=== PATIENT | female | born 1960 | race Caucasian/White ===

== ENCOUNTER 2018-06-05 13:02 | Outpatient (REF) | payer MEDICAID, SELFPAY ==
--- NOTE | 2018-06-05 12:00 | PAPFT_PTH ---
PATIENT: Kathi Rodas LOC: [facility] U#:[id number] AGE/SX: 58/F ROOM: RE06/05/[address]: Bobbi Zeng APRN : 1960 BED: DIS: 06/05/2018 SPEC #: [id number] RECD: 06/06/18 13:05 STATUS: STEVEN RERoderick #: [id number] KERI: 06/05/18 12:[address]: Bobbi Zeng DEPT: [facility] Cytology RECD BY: So Bradley Tissues: 1 - CX/ENDOCX FOR PAP SMEARS Procedures: PAP THIN PREP/UVM Screening HPV DNA PROBE Comments: [id number]
== END 2018-06-05 13:22 ==
LOC: LBN 13:02
DX: Z12.4 Encounter for screening for malignant neoplasm of cervix (principal); Z11.51 Encounter for screening for human papillomavirus (HPV)
CPT/HCPCS: 88142; 87624

== ENCOUNTER 2018-06-13 01:39 | Outpatient (CLI) | payer MEDICAID, SELFPAY ==
--- NOTE | 2018-06-13 14:00 | DI.US_ITS ---
SYMPTOM/DIAGNOSIS: LIGHTHEADEDNESS, HYPERTENSION, HEALTH CARE MAINTENANCE, DIZZINESS, R42,I10,Z00.00 CAROTID ULTRASOUND: A mild amount of calcific plaque is seen in the left proximal external carotid artery. There is mild intimal thickening in the distal common carotid arteries. No significant internal carotid artery stenosis is visualized. The velocity measurements are in the normal range. IMPRESSION: Minimal plaque. No significant internal carotid artery stenosis.
== END 2018-06-13 01:59 ==
DX: R42 Dizziness and giddiness (principal); I65.22 Occlusion and stenosis of left carotid artery; I10 Essential (primary) hypertension; F32.9 Major depressive disorder, single episode, unspecified
CPT/HCPCS: 93880

== ENCOUNTER 2018-06-28 00:34 | Outpatient (CLI) | payer MEDICAID, SELFPAY ==
--- NOTE | 2018-06-28 15:30 | DI.MAMMO_ITS ---
SYMPTOMS/DIAGNOSIS: SCREENING, Z12.31, HEALTH CARE MAINTENANCE, Z00.00 MAMMOGRAMS: Mammograms were interpreted according to the usual protocol including computer analysis with CAD system, tomosynthesis and C view imaging. The breasts are of moderate density with fairly symmetrical distribution of fibroglandular tissue. No dominant mass or clumped microcalcification is identified in either breast. Current examination is compared with previous examinations including May 2016 and there is increased prominence of an area of nodularity projected in the central portion of the left breast on MLO view. Additional mammographic views of this area are requested to include an MLO spot compression view of the left breast. No other significant change seen. CONCLUSION: Additional mammographic views of the left breast requested as described above. Breast ultrasound may be indicated as well depending on the results of the additional mammographic views. Category 0, breast density category B. MQSA ASSESSMENT OF FINDINGS: Incomplete: Needs additional imaging evaluation. Category 0. Patient will receive a letter notifying them of these results. BI-RADS category B. There are scattered areas of fibroglandular density.
== END 2018-06-28 00:54 ==
DX: Z12.31 Encounter for screening mammogram for malignant neoplasm of breast (principal); Z00.00 Encounter for general adult medical examination without abnormal findings; R92.8 Other abnormal and inconclusive findings on diagnostic imaging of breast
CPT/HCPCS: 77063; 77067

== ENCOUNTER 2018-07-06 00:39 | Outpatient (CLI) | payer MEDICAID, SELFPAY ==
--- NOTE | 2018-07-06 14:30 | DI.COMBO_ITS ---
SYMPTOMS/DIAGNOSIS: F/U ABNORMAL MAMMO, INCREASED PROMINENCE IN AREA OF NODULARITY ADDITIONAL MAMMOGRAPHIC VIEWS, LEFT BREAST, AND LEFT BREAST ULTRASOUND: Additional mammographic views of the left breast and left breast ultrasound are interpreted in conjunction. These examinations were obtained to evaluate a questionable area of asymmetric density or nodularity seen on recent mammogram. Additional mammographic views fail to show a discrete mass. Breast ultrasound shows no evidence of a mass or cyst. CONCLUSION: No specific evidence of malignancy at this time. Follow-up unilateral left breast mammogram recommended in six months. Category 3, breast density category B. MQSA ASSESSMENT OF FINDINGS: Probably benign. Six month follow-up recommended. Category 3. Patient will receive a letter notifying them of these results. BI-RADS category B. There are scattered areas of fibroglandular density.
== END 2018-07-06 00:59 ==
DX: Z12.31 Encounter for screening mammogram for malignant neoplasm of breast (principal); R92.8 Other abnormal and inconclusive findings on diagnostic imaging of breast; N64.59 Other signs and symptoms in breast
CPT/HCPCS: 76642; 77063; 77067

== ENCOUNTER 2018-12-11 15:31 | Emergency (ER) | payer MEDICAID, SELFPAY ==
[2018-12-11 15:34] VITALS: BP 132/106; PULSE 108; RESP 20; O2SAT 97
--- NOTE | 2018-12-11 15:59 | W.ED.GENAD ---
Discharge Plan Disposition Patient Disposition: HOME Condition: Good Discharge Details Chief Complaint: Orthopedic Clinical Impression: Bunion of left foot Primary Care Provider: Bobbi Zeng ED Provider: Gil Andrade Home Meds and New Rx's Prescriptions: No Action loratadine [Claritin] 10 mg tablet 10 mg PO DAILY RF: 0 lorazepam 1 mg tablet 0.5 - 1 mg PO BID PRN (Reason: anxiety) Qty: 10 RF: 0 ibuprofen 800 mg tablet 800 mg PO TID Qty: 60 RF: 1 hydrochlorothiazide 12.5 mg tablet 12.5 mg PO DAILY Qty: 90 RF: 3 (DME) Space Chamber Plus spacer 1 ea Miscellaneous ONCE Qty: 1 RF: 0 paroxetine HCl 20 mg tablet 20 mg PO DAILY Qty: 90 RF: 3 albuterol sulfate 90 mcg/actuation HFA aerosol inhaler 2 puff IH Q6H PRN (Reason: bronchospasm) Qty: 8.5 RF: 2 fluticasone propion-salmeterol 230-21 mcg/actuation HFA aerosol inhaler 2 puff IH BID Qty: 8 RF: 2 montelukast [Singulair] 10 mg tablet 10 mg PO QHS Qty: 30 RF: 12 Discharge Instructions Instructions: Swollen Joint (ED) Additional Instructions: Please use the postop boot for the next week, you can take a maximum dose of 1000 mg of Tylenol every 6 hours and 600 mg of ibuprofen every 6 hours. Please use the Lidoderm patch as directed. Place one portion of the patch on for 12 hours, and then leave it off for [address] can then place a new quarter of the patch on and repeat this process. If you have no improvement of your symptoms it would be advised to get an x-ray of your foot for closer evaluation. If you notice any worsening of your symptoms, or any new symptoms such as vomiting, diarrhea, fever, chills, shortness of breath, chest pain, numbness, weakness, or fainting , please return immediately to the emergency department for reevaluation. Please follow up with your primary care provider as soon as possible for reassessment and reevaluation. As always, it was a pleasure participating in your medical care today. Referrals: Bobbi Zeng, AXEL [Primary Care Provider] - Medical Decision Making This is a 58-year-old female who presents today for evaluation of pain in her left foot medial bunion. She hit it with a piece of wood 3 weeks ago, pain was mild at that time and resolved on its own, however in the last 24 hours she stubbed her great toe causing significant if not severe pain at the time. Pain is made worse with movement and palpation appears to be located at the metatarsal phalangeal joint by the bunion. No significant warmth. Minimal swelling. Signs and symptoms are concerning for mild fracture, gout, or sprain. Patient has no family history of gout. We will hold off on blood testing. I did discuss getting an x-ray of the foot, unfortunately there is a significant wait for getting x-rays at this time after discussion of risks and benefits the patient has requested to hold off on x-ray and stick with current management plan. 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 The patient was given a postop shoe, padding over the medial bunion, and a small quarter of a Lidoderm patch placed on it. She actually has complete resolution of her pain with this and is able to walk without any significant pain or difficulty. She does not want crutches at this time. Will recommend NSAIDs at home, continue Lidoderm patch use and postop boot for the next 1 to 2 weeks. If she has no improvement with this I have encouraged her to come back again for x-rays. We discussed red flags for which to return. I have extensively reviewed the treatment plan and discharge instructions with the patient. I have addressed all patient concerns at this time. The patient was made aware of what symptoms to monitor for that would warrant a return to the emergency department. Discussed the plan with the patient, they demonstrate verbal understanding and agreement with our assessment and plan at this time. HPI General Date/Time Provider Initiated Documentation: 12/11/18 15:44. HPI Narrative: This is a 58-year-old female with a past medical history of COPD, anxiety, depression, who presents today for evaluation of left foot bunion pain. Patient states that she has known bunions, 3 weeks ago she dropped a piece of wood on her left great toe bunion, discussed significant pain at that time, but gradually resolved on its own. Unfortunately his last night she was walking and stubbed her left great toe causing significant pain to again recurrent in the same area. Currently pain is made worse with palpation and movement. She has taken a dose of ibuprofen but this does not resolve the symptoms. She denies any personal or family history of gout. She denies any complaints of fever or chills. Pain seems to be mainly localized in the bunion itself. No other modifying factors. Related Data Home Medications Medication Instructions Recorded Confirmed hydrochlorothiazide 12.5 mg tablet 12.5 mg PO DAILY #90 tab 12/12/17 12/11/18 inhalational spacing device #1 each 12/12/17 12/11/18 paroxetine HCl 20 mg tablet 20 mg PO DAILY #90 tab 12/12/17 12/11/18 loratadine 10 mg tablet 10 mg PO DAILY 06/05/18 12/11/18 albuterol sulfate 90 mcg/actuation 2 puff IH Q6H PRN #8.5 gm 10/08/18 12/11/18 aerosol inhaler fluticasone propionate-salmeterol 2 puff IH BID #8 gm 10/08/18 12/11/18 230 mcg-21 mcg/actuation HFA inhaler ibuprofen 800 mg tablet 800 mg PO TID #60 tab 11/14/18 12/11/18 lorazepam 1 mg tablet 0.5 - 1 mg PO BID PRN #10 tab 11/14/18 12/11/18 montelukast 10 mg tablet 10 mg PO QHS #30 tab 11/26/18 12/11/18 Previous Rx's Medication Instructions Recorded hydrochlorothiazide 12.5 mg tablet 12.5 mg PO DAILY #90 tab 12/12/17 inhalational spacing device #1 each 12/12/17 paroxetine HCl 20 mg tablet 20 mg PO DAILY #90 tab 12/12/17 albuterol sulfate 90 mcg/actuation 2 puff IH Q6H PRN #8.5 gm 10/08/18 aerosol inhaler fluticasone propionate-salmeterol 2 puff IH BID #8 gm 10/08/18 230 mcg-21 mcg/actuation HFA inhaler ibuprofen 800 mg tablet 800 mg PO TID #60 tab 11/14/18 lorazepam 1 mg tablet 0.5 - 1 mg PO BID PRN #10 tab 11/14/18 montelukast 10 mg tablet 10 mg PO QHS #30 tab 11/26/18 Allergies Allergy/AdvReac Type Severity Reaction Status Date / Time Penicillins Allergy Intermediate SKIN RASH Verified 12/11/18 15:36 General Stated Complaint: Orthopedic ANASTACIA: 3 Review of Systems Review of Systems ROS Unobtainable: All systems reviewed & are unremarkable except as noted in HPI and below PFSH Social History Smoking/Tobacco Use Status: Former Tobacco Use Alcohol Intake: current Alcohol Intake frequency: holidays/special occasions only Alcohol type: wine Drug use: Never Substance use type: does not use Caregiver/Support person: No Household members: spouse and other Details: 2 clients Housing: house 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 Pets and animals: Yes Pets and animals: dog(s) Sexually active: Yes Do you think of yourself as: straight/heterosexual Current gender identity: female What is your relationship status?: How often do you talk on the phone with friends or family?: decline to answer How often do you get together with friends or relatives?: once per week How often do you attend faith or christian services?: decline to answer Do you belong to any clubs or organized social groups?: yes Panel score (0-1 are the most socially isolated patients): 2 What type of physical activity do you participate in: walking Duration: 15-30 minutes/day Frequency: 1-2 times per week Sophia/Latter-Day: No preference Special sophia needs: No Seatbelt use: always Helmet use: Yes Helmet use: always Drive intox or ride w/intox 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 3.ENT: Atraumatic external nose and ears. Moist MM. Neck: Symmetric, trachea midline, No thyromegaly. 4.CVS: +S1/S2, No murmurs or gallops. Peripheral pulses 2+ and equal in all extremities. Brisk capillary refill in all extremities. 5.RESP: Unlabored respiratory effort. Clear to auscultation bilaterally. No wheezes rales or rhonchi 6.GI: Soft, Nontender/Nondistended, No hepatosplenomegaly. No guarding or rebound. 7.MSK: Normocephalic, Extremities w/o deformity. No cyanosis or clubbing, Normal movement of all extremities. Minimal redness over the left foot medial bunion. Mild tenderness over the bunion itself, slightly worse test tenderness over the metatarsal phalangeal joint of the great toe. Patient demonstrates normal flexion and extension of the great toe. Normal capillary refill. No warmth. Normal dorsalis pedis pulse bilaterally. No evidence of significant deformity. Palpation movement of the toe demonstrates mild tenderness in general. 8.Skin: Warm, Dry. Please see musculoskeletal 9.Neuro: sr risk management consultant II-XII grossly intact. Sensation grossly intact, no focal neurologic deficits. 10.Psych: (AAO) x3. Appropriate mood and affect Course Vital Signs Vital signs: Vital Signs Pulse 108 H 12/11/18 15:34 Respiratory Rate 20 12/11/18 15:34 Blood Pressure 132/106 H 12/11/18 15:34 Pulse Oximetry 97 12/11/18 15:34 Pulse 108 H 12/11/18 15:34 Respiratory Rate 20 12/11/18 15:34 Blood Pressure 132/106 H 12/11/18 15:34 Blood Pressure Position Sitting 12/11/18 15:34 Pulse Oximetry 97 12/11/18 15:34 Oxygen Delivery Method Room Air 12/11/18 15:34 Oxygen Flow Rate 0 12/11/18 15:34 Pain Level 6 12/11/18 15:34
[2018-12-11 16:10] VITALS: BP 132/106; PULSE 108; RESP 20; O2SAT 97
[2018-12-11] MEDS: Lidocaine 5% Patch 1 PATCH (16:15)
== END 2018-12-11 16:15 | disposition home or self-care (01) ==
LOC: ER 16:11
PROVIDERS: Emergency Provider Student in an Organized Health Care Education/Training Program
DX: M21.612 Bunion of left foot (principal); J44.9 Chronic obstructive pulmonary disease, unspecified; Z87.891 Personal history of nicotine dependence
CPT/HCPCS: 29515; 99283; 99282

== ENCOUNTER 2018-12-16 15:58 | Emergency (ER) | payer MEDICAID, SELFPAY ==
[2018-12-16 16:02] VITALS: BP 126/83; PULSE 109; RESP 18; TEMP 36.5; O2SAT 96
--- NOTE | 2018-12-16 16:30 | ED.GENADUL_ITS ---
Discharge Plan Disposition Patient Disposition: HOME Condition: Stable Discharge Details Chief Complaint: Orthopedic Clinical Impression: Acute foot pain Primary Care Provider: Bobbi Zeng ED Provider: Frankie Ochoa Home Meds and New Rx's Prescriptions: No Action loratadine [Claritin] 10 mg tablet 10 mg PO DAILY RF: 0 lorazepam 1 mg tablet 0.5 - 1 mg PO BID PRN (Reason: anxiety) Qty: 10 RF: 0 ibuprofen 800 mg tablet 800 mg PO TID Qty: 60 RF: 1 hydrochlorothiazide 12.5 mg tablet 12.5 mg PO DAILY Qty: 90 RF: 3 (DME) Space Chamber Plus spacer 1 ea Miscellaneous ONCE Qty: 1 RF: 0 paroxetine HCl 20 mg tablet 20 mg PO DAILY Qty: 90 RF: 3 albuterol sulfate 90 mcg/actuation HFA aerosol inhaler 2 puff IH Q6H PRN (Reason: bronchospasm) Qty: 8.5 RF: 2 fluticasone propion-salmeterol 230-21 mcg/actuation HFA aerosol inhaler 2 puff IH BID Qty: 8 RF: 2 montelukast [Singulair] 10 mg tablet 10 mg PO QHS Qty: 30 RF: 12 Discharge Instructions Instructions: Arthralgia (ED) Additional Instructions: Continue to take your ibuprofen as prescribed. Please wear your postop shoe that was previously provided to you and if not improving over the next week please follow-up with podiatry for reassessment Referrals: Kelvin Rivas DPM [[facility] STAFF PHYSICIAN] - 1 week (If not improving) Discharge Data Discharge Date/Time-TO BE ENTERED AT DEPARTURE: 12/16/18 17:50 Medical Decision Making Patient presenting to the emergency department for chief complaint of left toe pain. Patient states that she had struck her foot approximately 1 month ago and has been having discomfort since. Patient was seen in the emergency department and given a walking boot which she states that she only wore for 1 day and it did not help so she went back to wearing her normal tennis shoes. Patient was offered x-rays at that time but given severe patient volume and delay of imaging she decided to defer on imaging and to return for worsening. Patient states no new symptoms but that symptoms are continuing and that she is having a little bit of numbness. Physical exam shows significant tenderness to the MTP of the great toe of the left foot. There is a bunion but this does not seem to be as specifically tender. Plan to do radiological imaging. Patient denies any need of pain medication pending results. Review of radiological imaging and virtual radiologist interpretation shows no acute fracture but I am concerned for a possible osteophyte fracture. I do not feel that this needs emergent attention but patient was encouraged to go back to using walking boot for minimum of 1 week and then if not improving to contact sound assistant for reassessment. After discussion of diagnosis and plan of care patient has no further needs, questions, or concerns and states clear understanding to return to the emergency department for any worsening symptoms. HPI General Mode of arrival: ambulatory . Date/Time Provider Initiated Documentation: 12/16/18 16:01 . Limitations to Documentation: no limitations . Information obtained by: patient . History of Present Illness 58 year old F presents to the emergency department with the chief complaint of left great toe pain, described as moderate, Quality is described as aching and sharp, and is localized to the left and lower extremity. Patient started experiencing this month(s) (1) and it has been constant. No relieving factors improve symptom(s), Patient notes no other symptoms.. Related Data Home Medications Medication Instructions Recorded Confirmed hydrochlorothiazide 12.5 mg tablet 12.5 mg PO DAILY #90 tab 12/12/17 12/16/18 inhalational spacing device #1 each 12/12/17 12/11/18 paroxetine HCl 20 mg tablet 20 mg PO DAILY #90 tab 12/12/17 12/16/18 loratadine 10 mg tablet 10 mg PO DAILY 06/05/18 12/16/18 albuterol sulfate 90 mcg/actuation 2 puff IH Q6H PRN #8.5 gm 10/08/18 12/16/18 aerosol inhaler fluticasone propionate-salmeterol 2 puff IH BID #8 gm 10/08/18 12/16/18 230 mcg-21 mcg/actuation HFA inhaler ibuprofen 800 mg tablet 800 mg PO TID #60 tab 11/14/18 12/16/18 lorazepam 1 mg tablet 0.5 - 1 mg PO BID PRN #10 tab 11/14/18 12/16/18 montelukast 10 mg tablet 10 mg PO QHS #30 tab 11/26/18 12/16/18 Previous Rx's Medication Instructions Recorded hydrochlorothiazide 12.5 mg tablet 12.5 mg PO DAILY #90 tab 12/12/17 inhalational spacing device #1 each 12/12/17 paroxetine HCl 20 mg tablet 20 mg PO DAILY #90 tab 12/12/17 albuterol sulfate 90 mcg/actuation 2 puff IH Q6H PRN #8.5 gm 10/08/18 aerosol inhaler fluticasone propionate-salmeterol 2 puff IH BID #8 gm 10/08/18 230 mcg-21 mcg/actuation HFA inhaler ibuprofen 800 mg tablet 800 mg PO TID #60 tab 11/14/18 lorazepam 1 mg tablet 0.5 - 1 mg PO BID PRN #10 tab 11/14/18 montelukast 10 mg tablet 10 mg PO QHS #30 tab 11/26/18 Allergies Allergy/AdvReac Type Severity Reaction Status Date / Time Penicillins Allergy Intermediate SKIN RASH Verified 12/16/18 16:05 General Stated Complaint: Orthopedic ANASTACIA: 4 Review of Systems Musculoskeletal Musculoskeletal: Reports as per HPI, Reports arthralgias, Reports numbness and Denies tingling Integumentary/Breasts Skin/Breast: Denies rash, Denies sores and Denies wounds Neurologic Neurologic: Reports numbness and Denies tingling [facility] Medical History Allergic rhinitis (Chronic) Anxiety Anxiety (Chronic) Asthma Chronic obstructive lung disease (Resolved) quit smoking 1996 Depression Depressive disorder (Chronic) 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 Essential hypertension Acute myocardial infarction Heart disease Hyperlipidemia Pancreatic cancer Father , 74 Essential hypertension Heart disease Hyperlipidemia Lung cancer Asthma Sister Essential hypertension Depression Hyperlipidemia Primary fibromyalgia syndrome Brother Depression Heart disease Hyperlipidemia Asthma COPD (chronic obstructive pulmonary disease) Maternal Grandfather Essential hypertension Personal history of malignant neoplasm Stroke Paternal Grandfather Heart disease Maternal Grandmother No problems noted. Paternal Grandmother No problems noted. 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 Pets and animals: Yes Pets and animals: dog(s) Sexually active: Yes Do you think of yourself as: straight/heterosexual Current gender identity: female What is your relationship status?: How often do you talk on the phone with friends or family?: decline to answer How often do you get together with friends or relatives?: once per week How often do you attend samaritan or sikh services?: decline to answer Do you belong to any clubs or organized social groups?: yes Panel score (0-1 are the most socially isolated patients): 2 What type of physical activity do you participate in: walking Duration: 15-30 minutes/day Frequency: 1-2 times per week Sophia/Caodaism: No preference Special sophia needs: No Seatbelt use: always Helmet use: Yes Helmet use: always Drive intox or ride w/intox limo driver: No Do you feel safe at home: Yes Do you feel safe in your relationship?: Yes Exam Const General: cooperative and no acute distress Orientation: alert, awake and oriented x3 Resp Effort & Inspection: normal respiratory effort and able to speak in complete sentences Cardio Rate: regular rate Rhythm: regular rhythm Extrem Left lower extremity: foot Details: normal capillary refill, tenderness Location: of the great toe Location: at the MTP joint and at the distal phalanx and of the medial foot Location: in the mid-section, toes with normal ROM, no edema, vascular exam Details: dorsalis pedis pulse present, posterior tibial pulse present and normal capillary refill and tendon exam Details: active flexion normal and active extension normal; no abrasions, no crepitus and no puncture wound Course Vital Signs Vital signs: Vital Signs Temperature 36.5 C 12/16/18 16:02 Pulse 109 H 12/16/18 16:02 Respiratory Rate 18 12/16/18 16:02 Blood Pressure 126/83 12/16/18 16:02 Pulse Oximetry 96 12/16/18 16:02 Temperature 36.5 C 12/16/18 16:02 Temperature Source Skin 12/16/18 16:02 Pulse 109 H 12/16/18 16:02 Respiratory Rate 18 12/16/18 16:02 Respiratory Effort Non-Labored 12/16/18 16:07 Blood Pressure 126/83 12/16/18 16:02 Blood Pressure Position Sitting 12/16/18 16:02 Pulse Oximetry 96 12/16/18 16:02 Oxygen Delivery Method Room Air 12/16/18 16:02 Oxygen Flow Rate 0 12/16/18 16:02 Pain Level 6 12/16/18 16:08
--- NOTE | 2018-12-16 17:08 | DI.RAD_ITS ---
EXAM: XR FOOT LT COMPLETE CLINICAL HISTORY: great toe and mid foot pain. TECHNIQUE: 2D digital imaging was performed. COMPARISON: No exams were available for comparison FINDINGS: BONES: No acute fracture is present. No bony destructive lesion is seen. JOINTS: No dislocation present. SOFT TISSUE: Normal. IMPRESSION: Unremarkable radiographs of the left foot.
--- NOTE | 2018-12-16 17:15 | DI.VRAD_ITS ---
PROCEDURE INFORMATION: Exam: XR Left Foot Complete Exam date and time: 12/16/2018 5:08 PM Clinical history: 58 years old, female; Other: Great toe and mid foot pain TECHNIQUE: Imaging protocol: XR Left foot. Views: 3 or more views. COMPARISON: No relevant prior studies available. FINDINGS: Bones/joints: Normal. Soft tissues: Normal. IMPRESSION: No acute findings. Dictated and Authenticated by: Kam Finn MD. Ordering:PANCHO David MD
== END 2018-12-16 17:50 | disposition home or self-care (01) ==
PROVIDERS: Emergency Provider Nurse Practitioner Family
DX: M79.675 Pain in left toe(s) (principal)
CPT/HCPCS: 99282; 73630

== ENCOUNTER 2019-11-04 02:01 | Outpatient (CLI) | payer MEDICAID, SELFPAY ==
[2019-11-04 08:31] LABS: ALT 32 U/L (14-59); AST 20 U/L (15-37); Albumin 3.6 g/dL (3.4-5.0); Alkaline Phosphatase 84 U/L (46-116); Anion Gap 10.2 mmol/L (3-11); BUN 11 mg/dL (7-18); Bilirubin, Total 0.2 mg/dL (0.2-1.0); CO2 25.8 mmol/L (21.0-32.0); CREATININE 0.88 mg/dL (0.55-1.02); Calculated LDL 134 mg/dL (<100); Chloride 108 mmol/L (98-107); Cholesterol 192 mg/dL (<200); Glucose 115 mg/dL (74-106); HDL Cholesterol 42 mg/dL (40-60); Sodium 144 mmol/L (136-145); Total Protein 6.7 g/dL (6.4-8.2); Triglyceride 81 mg/dL (<150)
== END 2019-11-04 02:21 ==
DX: E78.5 Hyperlipidemia, unspecified (principal); I10 Essential (primary) hypertension; R63.8 Other symptoms and signs concerning food and fluid intake
CPT/HCPCS: 36415; 80053; 80061

== ENCOUNTER 2021-03-01 02:52 | Outpatient (CLI) | payer MEDICAID, SELFPAY ==
[2021-03-01 13:23] VITALS: BP 127/84; PULSE 94; RESP 22; TEMP 36.6; O2SAT 94
[2021-03-01] MEDS: Normal Saline 500 ML 30 ML IV (14:13)
[2021-03-01 14:18] VITALS: BP 136/82; PULSE 84; RESP 20; TEMP 37.3; O2SAT 95
[2021-03-01 14:35] VITALS: BP 134/91; PULSE 84; RESP 18; TEMP 36.9; O2SAT 94
[2021-03-01 15:06] VITALS: BP 129/98; PULSE 88; RESP 16; TEMP 36.9; O2SAT 94
[2021-03-01 15:35] VITALS: BP 129/85; PULSE 81; RESP 16; TEMP 36.3; O2SAT 94
== END 2021-03-01 02:53 | disposition home or self-care (01) ==
PROVIDERS: Visit Provider Family Medicine
DX: U07.1 COVID-19 (principal)
CPT/HCPCS: 96365

== ENCOUNTER 2021-04-13 04:19 | Outpatient (CLI) | payer MEDICAID, SELFPAY ==
[2021-04-13 07:47] LABS: Bilirubin Negative (Negative); Blood Trace-intact (Negative); Clarity Clear (Clear); Glucose Negative (Negative); Ketones Negative (Negative); Leukocyte Esterase Negative (Negative); Nitrite Negative (Negative); Specific Gravity >= 1.030 (1.005-1.025); Urobilinogen 0.2 EU/dL (Up TO 0.2)
[2021-04-13 07:54] LABS: Bacteria Negative HPF (Negative); C & S Indicated? No; Casts Negative LPF (Negative); Crystals Negative HPF (Negative); Epithelial Cells Rare HPF (Negative); Mucus Negative (Negative); RBC 0-2 HPF (0-2); WBC Negative HPF (0-5)
[2021-04-13 08:40] LABS: Hemoglobin A1C 6.3 % (<5.7)
[2021-04-13 08:46] LABS: ALT 42 U/L (14-59); AST 18 U/L (15-37); Albumin 3.8 g/dL (3.4-5.0); Alkaline Phosphatase 81 U/L (46-116); Anion Gap 10.2 mmol/L (3-11); BUN 15 mg/dL (7-18); Bilirubin, Total 0.3 mg/dL (0.2-1.0); CO2 26.8 mmol/L (21.0-32.0); CREATININE 0.9 mg/dL (0.55-1.02); Calcium 9.1 mg/dL (8.5-10.1); Chloride 103 mmol/L (98-107); Glucose 108 mg/dL (74-106); Potassium 4.2 mmol/L (3.5-5.1); Sodium 140 mmol/L (136-145); Total Protein 7.1 g/dL (6.4-8.2)
== END 2021-04-13 04:20 | disposition home or self-care (01) ==
LOC: LBO 04:19
DX: I10 Essential (primary) hypertension (principal); R73.01 Impaired fasting glucose; N39.498 Other specified urinary incontinence
CPT/HCPCS: 36415; 80053; 81003; 81015; 83036

== ENCOUNTER → 2021-05-24 03:07 | Outpatient (CLI) | payer MEDICAID, SELFPAY ==
--- NOTE | 2021-05-24 07:15 | DI.MAMMO_ITS ---
Exam(s) MAMMO SCREENING EXAM: MAMMO SCREENING CLINICAL HISTORY: screening,z12.39 TECHNIQUE: Mammograms were interpreted according to the usual protocol including computer analysis w [employer] CAD system, tomosynthesis and C-view imaging. COMPARISON: 2014 through 2018 FINDINGS: The breasts are composed of scattered fibroglandular densities, Breast Density category B. No suspicious masses or suspicious microcalcifications are seen. No skin thickening or abnormal axillary lymph nodes are seen. There has been no significant change from prior exams. IMPRESSION: BI-RADS Category 1, Negative mammogram Yearly screening mammography is recommended. Breast Density - Category B, scattered fibroglandular densities. A negative radiographic report should not delay biopsy if a dominant or clinically suspicious mass is present. Up to ten percent of cancers are not identified on mammography. A negative report may reinforce clinical impression. Adenosis and dense breasts may obscure an underlying neoplasm. False positive reports average 6 to 10%. Patient will receive a letter notifying them of these results.
== END ==
DX: Z12.31 Encounter for screening mammogram for malignant neoplasm of breast (principal)
CPT/HCPCS: 77063; 77067

== ENCOUNTER 2021-09-04 17:36 | Emergency (ER) | payer MEDICAID, SELFPAY ==
[2021-09-04 17:40] VITALS: BP 129/85; PULSE 88; RESP 18; TEMP 36.8; O2SAT 95
--- NOTE | 2021-09-04 17:45 | DI.RAD_ITS ---
Exam(s) XR ELBOW LT COMPLETE EXAM: XR ELBOW LT COMPLETE CLINICAL HISTORY: pain ,swelling, fall, olecranon bursitis. TECHNIQUE: 2D digital imaging was performed. Three views. COMPARISON: No exams were available for comparison FINDINGS: BONES: No acute fracture is present. No bony destructive lesion is seen. JOINTS: The elbow is normally aligned. No joint effusion is seen. SOFT TISSUE: Mild swelling. No foreign body. IMPRESSION: Unremarkable radiographs of the left elbow. DATA REPOSITORY: RADIATION DOSE DELIVERED:
--- NOTE | 2021-09-04 18:26 | DI.VRAD_ITS ---
Addendum created by Elizabeth Hernandez MD on 09/04/2021 6:26:46 PM EDT: Correction of a typographical error in the findings as follows: Soft tissues: Swelling, medial elbow without a definite joint effusion. There is mild swelling posteriorly as well which can be seen in olecranon bursitis as stated in the history. Initial report created on 09/04/2021 6:26:17 PM EDT: PROCEDURE INFORMATION: Exam: XR Left Elbow Exam date and time: 09/04/2021 18:12 Age: 61 years old Clinical indication: Other: Pain, swelling, fall, olecranon bursitis TECHNIQUE: Imaging protocol: Radiologic exam of the Left elbow. Views: 3 or more views. COMPARISON: No relevant prior studies available. FINDINGS: Bones/joints: No acute fracture or subluxation. Soft tissues: Swelling, medial elbow without a definite joint effusion. There is mild swelling posteriorly as well which can be seen in the left groin on bursitis as stated in the history. IMPRESSION: No acute bony pathology. Dictated and Authenticated by: Elizabeth Hernandez MD. Ordering:JUAN Rizzo MD
--- NOTE | 2021-09-04 18:57 | W.ED.GENAD ---
Discharge Plan Disposition Patient Disposition: HOME Condition: Stable Discharge Details Clinical Impression: Bursitis, olecranon Primary Care Provider: Bobbi Zeng ED Provider: So Gabriel Home Meds and New Rx's Prescriptions: Continued fluticasone propion-salmeterol 230-21 mcg/actuation HFA aerosol inhaler 2 puff IH BID Qty: 8 6RF hydrochlorothiazide 12.5 mg tablet 12.5 mg PO DAILY Qty: 90 3RF ibuprofen 800 mg tablet 800 mg PO TID Qty: 60 1RF loratadine [Claritin] 10 mg tablet 10 mg PO DAILY Qty: 90 3RF montelukast [Singulair] 10 mg tablet 10 mg PO QHS Qty: 90 3RF paroxetine HCl 20 mg tablet 20 mg PO DAILY Qty: 90 3RF (DME) Space Chamber Plus spacer 1 ea Miscellaneous ONCE Qty: 1 0RF Rx Instructions: Replacement spacer albuterol sulfate 90 mcg/actuation HFA aerosol inhaler 2 puff IH Q6H PRN (Reason: bronchospasm) Qty: 17 6RF Discharge Instructions Instructions: Elbow Bursitis (ED) Additional Instructions: Take ibuprofen as needed for pain Rest your elbow as much as possible Will be self-limited Please return with fever, chills, worsening pain, or should he have new or worsening Referrals: Bobbi Zeng, [employer] [Primary Care Provider] - Medical Decision Making Patient appears well There is no evidence of secondary infection X-ray of left elbow does not show evidence of acute abnormality per radiology interpretation my review Patient clinically has olecranon bursitis on exam She has bruising surrounding it, ask for trauma Given that there is no fracture explained unclear indication for placing a sling, her bursitis also appears improved from her initial injury on She is instructed to rest it and apply Kirill wrap should she need it Tylenol and ibuprofen as needed for pain Return precautions discussed and patient expressed understanding Medical Records Medical records reviewed: Yes I reviewed the patient's medical records. HPI General Date/Time Provider Initiated Documentation: 09/04/21 17:48. HPI Narrative: This 61-year-old female presents with report of left elbow pain. Patient states on Monday she fell backward in her chair, hitting her elbow. She states she awoke with swelling to her left elbow the next morning. She denies any fever or chills. She states that she was concerned because it was bruised. She has pain with movement. She denies any strength or sensation change. She denies any head injury. She has history of coagulopathy. Related Data Home Medications Medication Instructions Recorded Confirmed inhalational spacing device (Space #1 ea 12/12/17 06/29/21 Chamber Plus) fluticasone propionate 230 2 puff inhalation BID #8 grams 04/08/21 09/04/21 mcg-salmeterol 21 mcg/actuation HFA inhaler hydrochlorothiazide 12.5 mg tablet 12.5 mg PO DAILY #90 tabs 04/08/21 09/04/21 ibuprofen 800 mg tablet 800 mg PO TID #60 tabs 04/08/21 09/04/21 loratadine 10 mg tablet (Claritin) 10 mg PO DAILY #90 tabs 04/08/21 06/29/21 montelukast 10 mg tablet 10 mg PO QHS #90 tabs 04/08/21 09/04/21 (Singulair) paroxetine HCl 20 mg tablet 20 mg PO DAILY #90 tabs 04/08/21 09/04/21 albuterol sulfate 90 mcg/actuation 2 puff inhalation Q6H PRN 07/27/21 09/04/21 aerosol inhaler bronchospasm #17 grams Previous Rx's Medication Instructions Recorded inhalational spacing device (Space #1 ea 12/12/17 Chamber Plus) fluticasone propionate 230 2 puff inhalation BID #8 grams 04/08/21 mcg-salmeterol 21 mcg/actuation HFA inhaler hydrochlorothiazide 12.5 mg tablet 12.5 mg PO DAILY #90 tabs 04/08/21 ibuprofen 800 mg tablet 800 mg PO TID #60 tabs 04/08/21 loratadine 10 mg tablet (Claritin) 10 mg PO DAILY #90 tabs 04/08/21 montelukast 10 mg tablet 10 mg PO QHS #90 tabs 04/08/21 (Singulair) paroxetine HCl 20 mg tablet 20 mg PO DAILY #90 tabs 04/08/21 albuterol sulfate 90 mcg/actuation 2 puff inhalation Q6H PRN 07/27/21 aerosol inhaler bronchospasm #17 grams Allergies Allergy/AdvReac Type Severity Reaction Status Date / Time Penicillins Allergy Intermediate SKIN RASH Verified 09/04/21 18:20 house dust Allergy Verified 09/04/21 18:20 Cats Allergy Uncoded 09/04/21 18:20 General Stated Complaint: Orthopedic ANASTACIA: 4 Review of Systems Narrative: Review of systems obtained x3 and negative aside from indication in HPI PFSH All Active Problems (Updated 09/04/21 @ 18:47 by CURTIS Petersen) Bursitis, olecranon (Acute) Obesity (BMI 35.0-39.9 without comorbidity) (Chronic) Impacted cerumen, right ear (Acute) Immunization due (Acute) Urinary incontinence (Acute) Mammogram abnormal (Acute) Elevated fasting glucose (Acute) Hyperlipidemia (Acute) Encounter for annual physical exam (Acute) Carpal tunnel syndrome (Acute) Increased BMI (body mass index) (Chronic) Hypertension (Chronic) Hearing loss (Chronic) B/L; left-sensorineural; 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 Surgical History mastoidectomy age 16 Open Carpal Tunnel release (~05/2008) right Family History Mother , PANCREATIC CA at age 60. Essential hypertension Acute myocardial infarction Heart disease Hyperlipidemia Pancreatic cancer Father , 74 Essential hypertension Heart disease Hyperlipidemia Lung cancer Asthma Brother Depression Heart disease Hyperlipidemia Asthma COPD (chronic obstructive pulmonary disease) Alcohol use disorder Bladder cancer Maternal Grandfather Essential hypertension Personal history of malignant neoplasm Stroke Paternal Grandfather Heart disease Maternal Grandmother No problems noted. Paternal Grandmother No problems noted. Son Depression Son Asthma Son Depression Daughter No problems noted. 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 Pets and animals: Yes Pets and animals: cat(s) and dog(s) Sexually active: Yes Do you think of yourself as: straight/heterosexual Current gender identity: female What is your relationship status?: How often do you talk on the phone with friends or family?: three or more times per week How often do you get together with friends or relatives?: once per week How often do you attend spiritism or alevism services?: decline to answer Do you belong to any clubs or organized social groups?: no Panel score (0-1 are the most socially isolated patients): 2 What type of physical activity do you participate in: walking Duration: 15-30 minutes/day Frequency: 3-4 times per week Sophia/Oriental Orthodox: No preference Special sophia needs: No Seatbelt use: always Drive intox or ride w/intox m48/m60 tank driver: No Do you feel safe at home: Yes Do you feel safe in your relationship?: Yes Exam HENMT Head: normal to inspection Eyes General: appearance normal, both eyes and all related structures Neck Other: No midline tenderness Extrem Other: Left elbow with obvious olecranon bursitis with surrounding ecchymosis, minimal tenderness, boggy olecranon bursa, no evidence of secondary infection, range of motion intact No evidence of discomfort to left shoulder left wrist Neurovascularly intact Course Vital Signs Vital signs: Vital Signs Temperature 36.8 C 09/04/21 17:40 Pulse 88 09/04/21 17:40 Respiratory Rate 18 09/04/21 17:40 Blood Pressure 129/85 09/04/21 17:40 Pulse Oximetry 95 09/04/21 17:40 Temperature 36.8 C 09/04/21 17:40 Temperature Source Skin 09/04/21 17:40 Pulse 88 09/04/21 17:40 Respiratory Rate 18 09/04/21 17:40 Respiratory Effort Non-Labored 09/04/21 18:20 Blood Pressure 129/85 09/04/21 17:40 Blood Pressure Position Sitting 09/04/21 17:40 Pulse Oximetry 95 09/04/21 17:40 Oxygen Delivery Method Room Air 09/04/21 17:40 Oxygen Flow Rate 0 09/04/21 17:40 Pain Level 0 09/04/21 17:40
== END 2021-09-04 19:15 | disposition home or self-care (01) ==
PROVIDERS: Emergency Provider Physician Assistant
DX: M70.22 Olecranon bursitis, left elbow (principal)
CPT/HCPCS: 99283; 73080

== ENCOUNTER 2021-10-01 14:59 | Outpatient (REF) | payer MEDICAID, SELFPAY ==
--- OUTSIDE RECORDS SUMMARY | 2021-10-01 15:03 | XMS_ITS | Clinical Summary ---
:1960 Author Organization [facility] Address [address] [place] [address] Care Team Providers Name Role Phone Brooke Lau MD Primary Care Provider Social History Tobacco Use Types Packs/Day Years Used Date Never Assessed Sex Assigned at Date Recorded Not on file Plan of Treatment Health Maintenance Due Date Last Done Comments Hepatitis C Screen 1960 COVID-19 Vaccine (1) 1966 Care Teams Lining Cementer Relationship Specialty Start Date End Date Brooke Lau MD PCP - General 01/02/[address] [place] [address] [address] [place], [place] [id number]
--- OUTSIDE RECORDS SUMMARY | 2021-10-01 15:03 | XMS_ITS | Encounter Summary ---
:1960 Author Organization [facility] Address [address] [place] [address] Care Team Providers Name Role Phone Brooke Singh MD Primary Care Provider Encounter Details Date Type Department Care Team Description 08/29/2011 Results Only [facility] Yolande Salazar MD [phone] [place] [address] Social History Tobacco Use Types Packs/Day Years Used Date Never Assessed Sex Assigned at Date Recorded Not on file documented as of this encounter Plan of Treatment Not on filedocumented as of this encounter Procedures Procedure Name Priority Date/Time Associated Diagnosis Comme nts SURGICAL PATHOLOGY Routine 08/29/2011 0:00 EDT Re sults for this procedure are i n the results section. documented in this encounter Results SURGICAL PATHOLOGY (08/29/2011 0:00 EDT) Pathology Report: SURGICAL PATHOLOGY REPORT JACKIE SIDDIQUI Reports generated via electronic interface contain carol ann ginal data; LAB however they are lacking the format of the original re port. Caution should be taken when reading/interpreting unfo rmatted reports. Name: ? KATHI RODAS ? Accession #: ? [id number] ? : ? 1960 (Age: 51) ??F ? Collect Date: ? 08/29/2011 ? Location: ? [facility] ? Receive Date: ? 012 ? Provider: YOLANDE SALAZAR MD Copy to: BROOKE SINGH MD ? Final Pathologic Diagnosis: ? Endometrium, biopsy: ? - Minute fragments of inactive endometrium, inadequate for full assessment. See comment. Comment: ? Deeper levels have been examined. (Dr. Sandra flores)/[facility] Document reviewed and electronically signed by: JILLIAN RENTERIA MD Report ??Date: 09/01/2011 17:40 By the signature above, the attending physician certif ies that he/she has personally conducted a gross and/or microscopic examin ation of the described specimens and rendered or confirmed the above diagnosi s. Specimen(s) Received: ? Endometrial bx Clinical History: ? PMB Gross Description: ? Received in formalin labelled , Kathi and endometrium is a 3.0 x 2.0 x 0.7 cm aggregate of clear mucinous material and a small amount of brewster-white tissue. ??The spec imen is entirely submitted as (A1) and (A2) following filtration. ??(Kingsley Linares)/chloe End of Report Specimen Performing Organization Address City/State/ZIP Code Phon e Number [facility] [address] [place] [address] SERVICES [facility] [address] [place] [address] documented in this encounter Visit Diagnoses Not on filedocumented in this encounter Care Teams College Teacher Relationship Specialty Start Date End Date Brooke Singh MD PCP - General 01/02/[address] [place] [address] [address] [place], [place] [address] documented as of this encounter
--- OUTSIDE RECORDS SUMMARY | 2021-10-01 15:03 | XMS_ITS | Encounter Summary ---
:1960 Author Organization [facility] Address [address] [place] [address] Care Team Providers Name Role Phone Brooke Singh MD Primary Care Provider Encounter Details Date Type Department Care Team Description 03/03/2015 Results Only [facility] Brooke Singh MD [phone] [facility] [facility] [place] [address] (Wo rk) Social History Tobacco Use Types Packs/Day Years Used Date Never Assessed Sex Assigned at Date Recorded Not on file documented as of this encounter Plan of Treatment Not on filedocumented as of this encounter Procedures Procedure Name Priority Date/Time Associated Diagnosis Comme nts PAP TEST- RESULT Routine 03/03/2015 0:00 EST Resu lts for this ONLY procedure are i n the results section. documented in this encounter Results PAP TEST- RESULT ONLY (03/03/2015 0:00 EST) Pathology Report: CYTOPATHOLOGY REPORT [facility] Reports generated via electronic interface contain carol ann ginal data; SERVICES however they are lacking the format of the original re port. Caution should be taken when reading/interpreting unfo rmatted reports. Name: ? KATHI RODAS ? Accession #: ? [id number] ? : ? 1960 (Age: 54 ) ??F ?Collect Da te: ? 03/03/2015 ? Location: ? [facility] ? Receive Date: ? 015 ? Provider: BROOKE SINGH MD Copy to: ? Final Report SPECIMEN ADEQUACY ? Satisfactory for Evaluation - assessment of transformation zone component not appl icable ( e.g. atrophy, vaginal sample, hysterectomy) - scant squamous epithelial component secondary to exc essive inflammation GENERAL CATEGORIZATION ? Negative for Intraepithelial Lesion or Malignan cy ?? Last Menstrual Period: Years ago Hormonal/Contraceptive status: None Other: Additional clinical information: No Animal Rides Manager clinica l/treatment hx Specimen/Source: ??Pap Test, Cervix/Endocervix, ThinPr ep Imaging System with manual evaluation Document reviewed and electronically signed by: ? KELLY Lara(ASCP) ? Report ??Date: 03/06/2015 11:59 HPV with Pap Test ? Date Ordered: ? 03/06/2015 ? Status: ?? Signed Out ?Date Complete: ? 03/10/2015 ? By: ??S ystem Interface ? Date Reported: ? 03/10/2015 ? Interpretation RESULT: Negative for HPV. No E6 or E7 mRNA is detected from HPV types 16,18,31,3 3,35, 39,45,51,52,56,58,59,66, and 68 by cvir tech media anabel amplification. Comments Document reviewed and electronically signed by: ? System Interface ? Report date: 03/10/2015 By the signature above, the attending physician certif ies that he/she has personally conducted a gross and/or microscopic examin ation of the described specimens and rendered or confirmed the above diagnosi s. End of Report Specimen Performing Organization Address City/State/ZIP Code Phon e Number [facility] [address] [place] [address] SERVICES documented in this encounter Visit Diagnoses Not on filedocumented in this encounter Care Teams Game Producer Relationship Specialty Start Date End Date Brooke Singh MD PCP - General 01/02/[address] [place] [address] [place] [address] documented as of this encounter
--- OUTSIDE RECORDS SUMMARY | 2021-10-01 15:03 | XMS_ITS | Encounter Summary ---
:1960 Author Organization [facility] Address [address] [place] [address] Care Team Providers Name Role Phone Brooke Lau MD Primary Care Provider Encounter Details Date Type Department Care Team Description 06/05/2018 Results Only [facility] Yahaira Diaz NP [phone] [address] [place] [address] (Wo rk) Social History Tobacco Use Types Packs/Day Years Used Date Never Assessed Sex Assigned at Date Recorded Not on file documented as of this encounter Plan of Treatment Not on filedocumented as of this encounter Procedures Procedure Name Priority Date/Time Associated Diagnosis Comme nts PAP TEST- RESULT Routine 06/05/2018 0:00 EDT Resu lts for this ONLY procedure are i n the results section. documented in this encounter Results PAP TEST- RESULT ONLY (06/05/2018 0:00 EDT) Pathology Report: CYTOPATHOLOGY REPORT [facility] Reports generated via electronic interface contain carol ann ginal data; SERVICES however they are lacking the format of the original re port. Caution should be taken when reading/interpreting unfo rmatted reports. Name: ? KATHI RODAS ? Accession #: ? [id number] ? : ? 1960 (Age: 58 ) ??F ?Collect Date: ? 06/05/2018 ? Location: ? [facility] ? Receive Date: ? 06/08/19 19 ? Provider: YAHAIRA DIAZ SEPTIC CLEANER-BC Copy to: ? Final Report SPECIMEN ADEQUACY ? Satisfactory for Evaluation - assessment of transformation zone component not appl icable ( e.g. atrophy, vaginal sample, hysterectomy) - scant squamous epithelial component secondary to exc essive inflammation GENERAL CATEGORIZATION ? Negative for Intraepithelial Lesion or Malignan cy ?? Menstrual/ Status: ??Post Menopausal Specimen/Source: ??Pap Test, Cervix/Endocervix, ThinPr ep Imaging System with manual evaluation Document reviewed and electronically signed by: ? Dianne Spencer, CT(ASCP)(IAC) ? Report ??Date: 06/11/2018 10:40 HPV with Pap Test ? Date Ordered: ? 06/11/2018 ? Status: ?? Signed Out ?Date Complete: ? 06/12/2018 ? By: ??Sy stem Interface ? Date Reported: ? 06/12/2018 ? Interpretation RESULT: Negative for HPV. No E6 or E7 mRNA is detected from HPV types 16,18,31,3 3,35, 39,45,51,52,56,58,59,66, and 68 by concrete gun operator media anabel amplification. Comments Document reviewed and electronically signed by: ? System Interface ? Report date: 06/12/2018 By the signature above, the attending physician certif ies that he/she has personally conducted a gross and/or microscopic examin ation of the described specimens and rendered or confirmed the above diagnosi s. End of Report Specimen Performing Organization Address City/State/ZIP Code Phon e Number [facility] [address] [place] [address] SERVICES documented in this encounter Visit Diagnoses Not on filedocumented in this encounter Care Teams Cannon Pinion Adjuster Relationship Specialty Start Date End Date Brooke Lau MD PCP - General 01/02/[address] [place] [address] [place] [address] documented as of this encounter
--- OUTSIDE RECORDS SUMMARY | 2021-10-01 15:04 | XMS_ITS | Encounter Summary ---
:1960 Author Organization [facility] Address [address] [place] [address] Care Team Providers Name Role Phone Unavailable Primary Care Provider Unavailable Encounter Details Date Type Department Care Team Description 12/31/2008 Orders Only [facility] Jared Guaman MD Laboratory Services - [address] [place] [address] [address] [facility] [place] [address] Social History Tobacco Use Types Packs/Day Years Used Date Never Assessed Sex Assigned at Date Recorded Not on file documented as of this encounter Plan of Treatment Not on filedocumented as of this encounter Procedures Procedure Name Priority Date/Time Associated Diagnosis Comme [facility] SURGICAL PATHOLOGY Routine 12/31/2008 0:00 EDT Re sults for this procedure are i n the results section. documented in this encounter Results SURGICAL PATHOLOGY (12/31/2008 0:00 EDT) Pathology Report: SURGICAL PATHOLOGY REPORT ? JACKIE VELEZ Reports generated via [employer] interface contain original data; ? LAB however they are lacking the format of the original report. ? Caution should be taken when reading/interpreting unformatted reports. ? Name: ? , KATHI L ? Accession #: ? [id number] ? : ? 1960 (Age: 48) ??F ? Collec t Date: ? 12/31/2008 ? Location: ? [facility] ? R eceive Date: ? 01/01/2009 ? Provider: JARED D MIREYA MD ? Copy to: CELESTE SINGH MD ? Final Pathologic Diagnosis: ? Endometrium, biopsy: ? - Disordered proliferative e ndometrium with breakdown. ??See comment. ? Comment: ? Teacher Advisor sectio ns have been reviewed at intradepartmental ? consultation conference. ??( Dr. Ramirez) ? Document reviewed and electr onically signed by: ? RADHA Bassett BUTNOR ? Report ??Date: 01/05/2009 12 :52 ? By the signature above, the attending physician certifies that he/she has ? personally conducted a gross and/or microscopic examination of the described ? specimens and rendered or co nfirmed the above diagnosis. ? Specimen(s) Received: ? Endometrial biopsy by Pipelle ? Clinical History: ? Postmenopausal bleedi ng; thickened endometrial stripe ? Gross Description: ? Received in formalin labelled , Kathi and endometrium are 0.5 x ?? 0.5 x 0.3 cm of brewster-pink to red hemorrhagic tissue fragments. ??The specimen is ?? entirely submitted in one ca ssette following filtration. ??(Mikayla Jefferson)/kmm ? End of Report ? Specimen Performing Organization Address City/State/ZIP Code Phon e Number [facility] [address] [place] [address] SERVICES [facility] [address] [place] [address] documented in this encounter Visit Diagnoses Not on filedocumented in this encounter
--- OUTSIDE RECORDS SUMMARY | 2021-10-01 15:04 | XMS_ITS | Encounter Summary ---
:1960 Author Organization [facility] Address [address] [place] [address] Care Team Providers Name Role Phone Brooke Singh MD Primary Care Provider Encounter Details Date Type Department Care Team Description 07/13/2006 Results Only [facility] - Brooke Jones MD [address] [place] [address] [place] [address] [phone] Social History Tobacco Use Types Packs/Day Years Used Date Never Assessed Sex Assigned at Date Recorded Not on file documented as of this encounter Plan of Treatment Not on filedocumented as of this encounter Procedures Procedure Name Priority Date/Time Associated Diagnosis Comme nts CYTOPATHOLOGY Routine 07/13/2006 0:00 EDT Results for this procedure are i n the results section . documented in this encounter Results CYTOPATHOLOGY (07/13/2006 0:00 EDT) Pathology Report: CYTOPATHOLOGY REPORT [facility] Reports generated via electronic interface contain carol ann ginal data; however they are lacking the format of the original re port. Caution should be taken when reading/interpreting unfo rmatted reports. Name: ? KATHI RODAS ? Accession #: ? T : ? 1960 (Age: 46) ??F ?Collect Date: ? 06/19 Location: ? [facility] ? Receive Date : ? 07/17/2006 Provider: ?BROOKE SINGH MD Copy to: ? Specimen/Source: ? ThinPrep Pap Test, Cervix/Endocervix, processed on [employer] ThinPrep Imaging System, with manual evaluation Last Menstrual Period: ? 06/29/06 Other: ? HPVA - HPV testing requested if ASC-US on the current ThinPrep Pap test. ? SPECIMEN ADEQUACY ? Satisfactory for Evaluation - transformation zone component present GENERAL CATEGORIZATION ? Negative for Intraepithelial Lesion or Malignan cy ? Document reviewed and electronically signed by: ? KELLY Morfin(ASCP)(IAC) ? Report Date: ??07/19/2006 11:34 End of Report Specimen Performing Organization Address City/State/ZIP Code Phon e Number [facility] [address] [place] [address] SERVICES [facility] [address] [place] [address] documented in this encounter Visit Diagnoses Not on filedocumented in this encounter Care Teams Manager Fiber Relationship Specialty Start Date End Date Brooke Singh MD PCP - General 01/02/[address] [place] [address] [address], [place] [id number] documented as of this encounter
--- OUTSIDE RECORDS SUMMARY | 2021-10-01 15:04 | XMS_ITS ---
:1960 Author Care Team Providers Name Role Phone YAHAIRA DIAZ Primary Care Provider [phone] YAHAIRA DIAZ Referring Provider [phone] Allergies Code Code System Name Reaction Severity Status Onset Penicillins ? ? Active ? Medications Name Status Start Date Stop Date ? ? albuterol sulfate 90 mcg/actuation breath activated powder inhal er Active ? Not available Inhale 2 puffs every 4 hours by inhalation route as needed. fluticasone propionate 230 mcg-salmeterol 21 mcg/actuation HFA i nhaler Active ? Not available Inhale 2 puffs twice a day by inhalation route as needed. hydrochlorothiazide 12.5 mg tablet Active ? Not available Take 1 tablet every day by oral route. IBU 800 mg tablet Active ? Not available Take 1 tablet 3 times a day by oral route. loratadine 10 mg tablet Active ? Not avai lable Take 1 tablet every day by oral route. lorazepam 1 mg tablet Active ? Not availa ble TAKE 1/2-1 TABLET (1 MG) BY ORAL ROUTE 2 TIMES PER DAY NEEDE D montelukast 10 mg tablet Active ? Not cortes ilable Take 1 tablet every day by oral route. paroxetine 20 mg tablet Active ? Not avai lable Take 1 tablet every day by oral route. Problems Name Status Onset Date Source ? Hyperlipidemia Active ? ? Anxiety Active ? ? Eating Problem Active ? ? Depressive Disorder Active ? ? Hearing Loss Active ? ? Hypertensive Disorder Active ? ? Asthma Active ? ? Procedures Date Name Performed by ? ? Carpal Tunnel Surgery Information not av ailable Notes: 05/2008 ? Mastoidectomy Information not avai lable Notes: age 16 Results Lab Results None recorded. Past Encounters None recorded. Social History Tobacco Smoking Status Former Smoker Vaccine List None recorded. Plan of Care Reminders Provider Appointments None recorded. ? ? Lab None recorded. ? ? Referral None recorded. ? ? Procedures None recorded. ? ? Surgeries None recorded. ? ? Imaging None recorded. ? ? Vitals Height Weight BMI Blood Pressure 149.86 cm 70.76 kg 31.5 kg/m2 120/62 mm[Hg]
--- OUTSIDE RECORDS SUMMARY | 2021-10-01 15:04 | XMS_ITS | Encounter Summary ---
:1960 Author Organization [facility] Address [address] [place] [address] Care Team Providers Name Role Phone Unavailable Primary Care Provider Unavailable Encounter Details Date Type Department Care Team Description 09/30/2008 Orders Only [facility] Mathieu Lau MD Laboratory Services - [address] [facility] [place] [place] [address] [address] [facility] [place] [address] [phone] Social History Tobacco Use Types Packs/Day Years Used Date Never Assessed Sex Assigned at Date Recorded Not on file documented as of this encounter Plan of Treatment Not on filedocumented as of this encounter Procedures Procedure Name Priority Date/Time Associated Comments Diagnosis HPV DETECTION, HIGH Routine 09/30/2008 14:32 Resu lts for this RISK TYPES EDT procedure are i n the results section. CYTOPATHOLOGY Routine 09/30/2008 0:00 Results for this EDT procedure are i n the results section. documented in this encounter Results HUMAN PAPILLOMA VIRUS DNA TEST (09/30/2008 14:32 EDT) Specimen Description Cervix, ThinPrep [facility] vial Result Negative for HPV [facility] types 16, 18, 31, 33, 35, 39, 45, 51, 52, 56, 58, 59, and 68. Report Status Final [facility] 10/09/2008 Specimen Performing Organization Address City/State/ZIP Code Phon e Number [facility] [address] [place] [address] SERVICES [facility] [address] [place] [address] CYTOPATHOLOGY (09/30/2008 0:00 EDT) Pathology Report: CYTOPATHOLOGY REPORT ? [facility] Reports generated via electr onic interface contain original data; ? however they are lacking the format of the original report. ? Caution should be taken when reading/interpreting unformatted reports. ? Name: ? KATHI RODAS ? Accession #: ? [id number] ? : ? 1960 (Age: 48) ??F ?Collect Date: ? 09/30/2008 ? Location: ? [facility] ? Receive Date: ? 09/30/2008 ? Provider: ?CELESTE ROSE MAN MD ? Copy to: ? Specimen/Source: ? Pap Test, Cervix, ThinPrep Imaging System with manual ?? evaluation ? Last Menstrual Period: ? 09/01/08 ? Other: ? HPVDX - HPV testing requeste d regardless of diagnosis on current ThinPrep Pap ?? test. ? SPECIMEN ADEQUACY ? Satisfactory for Eval uation ? - transformation zone compon ent present ? GENERAL CATEGORIZATION ? Negative for Intraepi thelial Lesion or Malignancy ? Document reviewed and electr onically signed by: ? Lynan Carson, [place](ASCP) ? Report Date: ??07/16/ 2009 16:21 ? End of Report ? Specimen Performing Organization Address City/State/ZIP Code Phon e Number [facility] [address] [place] [address] SERVICES [facility] [address] [place] [address] documented in this encounter Visit Diagnoses Not on filedocumented in this encounter
[2021-10-01 16:20] LABS: Abs Immature Grans 0.06 10^3/uL (0.0-0.06); Absolute Basophil Count 0.11 10^3/uL (0.0-0.2); Absolute Eosinophil Count 0.32 10^3/uL (0.0-0.7); Absolute Lymphocyte Count 2.72 10^3/uL (1.2-3.4); Basophils % 0.9; Eosinophils % 2.7; HCT 41.5 % (36.0-46.0); HGB 13.7 g/dL (11.2-15.7); Immature Grans % 0.5; Lymphocytes % 23.2; MCH 27.2 pg (27.0-33.0); MCV 83 fL (80-95); Neutrophils % 66.7; Platelet Count 295 10^3/uL (130-400); RBC 5.03 10^6/uL (3.93-5.22); RDW 13.7 % (11.7-14.6); WBC 11.71 10^3/uL (4.4-10.8)
[2021-10-01 16:21] LABS: Absolute Neutrophil Count 7.81 10^3/uL (1.2-6.7)
[2021-10-01 19:04] LABS: ALT 41 U/L (14-59); AST 21 U/L (15-37); Albumin 3.9 g/dL (3.4-5.0); Alkaline Phosphatase 89 U/L (46-116); Anion Gap 10.3 mmol/L (3-11); BUN 13 mg/dL (7-18); Bilirubin, Total 0.2 mg/dL (0.2-1.0); CO2 27.7 mmol/L (21.0-32.0); CREATININE 0.8 mg/dL (0.55-1.02); Calcium 9.2 mg/dL (8.5-10.1); Chloride 102 mmol/L (98-107); Glucose 129 mg/dL (74-106); Sodium 140 mmol/L (136-145); Total Protein 7.1 g/dL (6.4-8.2)
[2021-10-04 12:09] LABS: IgE 44 IU/mL (<158)
== END 2021-10-01 15:00 | disposition home or self-care (01) ==
LOC: LBN 14:59
PROVIDERS: Visit Provider Student in an Organized Health Care Education/Training Program
DX: J44.9 Chronic obstructive pulmonary disease, unspecified (principal)
CPT/HCPCS: 80053; 82785; 85025

== ENCOUNTER 2021-10-12 04:11 | Outpatient (CLI) | payer MEDICAID, SELFPAY ==
[2021-10-12] MEDS: Albuterol HFA 18 GM 200 PUFF INH IH (11:33)
[2021-10-12] MEDS: Inhaler, Assist Device 1 EACH MC (11:34)
--- NOTE | 2021-10-12 14:09 | W.PFT ---
Date of service: 10/12/21 Time of Service: 10:01 Pulmonary Function Test Result Requesting Provider Sam Indications: Asthma-COPD Overlap Interpretation Spirometry: There is moderate airflow limitation. There is a significant bronchodilator response. Lung Volumes: There is hyperinflation and air trapping Diffusion Capacity: Normal diffusion Airway Pressure: Increased airways resistance. Impression There is moderate airflow limitation with a significant bronchodilator response and air trapping. In the correct clinical context this could represent chronic bronchitis, asthma or both. Clinical Correlation therefore is recommended.
== END 2021-10-12 04:12 | disposition home or self-care (01) ==
LOC: RT 04:11
PROVIDERS: Visit Provider Student in an Organized Health Care Education/Training Program
DX: J45.909 Unspecified asthma, uncomplicated (principal); R94.2 Abnormal results of pulmonary function studies; J44.9 Chronic obstructive pulmonary disease, unspecified; R06.09 Other forms of dyspnea; R06.2 Wheezing; Z87.891 Personal history of nicotine dependence
CPT/HCPCS: 94060; 94726; 94729

== ENCOUNTER 2022-09-07 11:11 | Emergency (ER) | payer MEDICAID, SELFPAY ==
[2022-09-07 11:13] VITALS: BP 121/91; PULSE 90; RESP 18; TEMP 36.6; O2SAT 99
--- NOTE | 2022-09-07 12:07 | ED.GENADUL_ITS ---
Discharge Plan Disposition Patient Disposition: Home Discharge Details Clinical Impression: Laceration of finger Primary Care Provider: Mil Coombs ED Provider: So Gabriel Home Meds and New Rx's Prescriptions: Continued fexofenadine 180 mg tablet 180 mg PO DAILY Spiriva Respimat 2.5 mcg/actuation mist 2 puff inhalation DAILY Qty: 4 12RF triamcinolone acetonide [Nasacort Allergy] 55 mcg aerosol,spray 1 spray intranasal QAM Qty: 16.9 12RF Rx Instructions: administer into each nostril Dupixent Pen 300 mg/2 mL pen injector 600 mg subcut ONCE Qty: 4 0RF Rx Instructions: as a single dose Dupixent Pen 300 mg/2 mL pen injector 300 mg subcut Q2W Qty: 4 12RF (DME) Space Chamber Plus spacer 1 ea Miscellaneous ONCE Qty: 1 0RF Rx Instructions: Replacement spacer paroxetine HCl 20 mg tablet 20 mg PO DAILY Qty: 90 3RF fluticasone propion-salmeterol 230-21 mcg/actuation HFA aerosol inhaler 2 puff IH BID Qty: 8 6RF albuterol sulfate 90 mcg/actuation HFA aerosol inhaler 2 puff IH Q6H PRN (Reason: bronchospasm) Qty: 17 6RF ibuprofen 800 mg tablet 800 mg PO TID Qty: 60 1RF montelukast 10 mg tablet See Rx Instructions .ROUTE .COMPLEX Qty: 90 3RF Dose Instruction: TAKE 1 TABLET BY MOUTH EVERY DAY AT BEDTIME Rx Instructions: TAKE 1 TABLET BY MOUTH EVERY DAY AT BEDTIME hydrochlorothiazide 12.5 mg tablet 12.5 mg PO DAILY Qty: 90 3RF omeprazole 20 mg capsule,delayed release(DR/EC) 20 mg PO DAILY Qty: 90 4RF lisdexamfetamine 20 mg capsule 20 mg PO DAILY MDD 10 mg Qty: 30 0RF Vyvanse 20 mg capsule 20 mg PO DAILY Discharge Instructions Instructions: Finger Laceration (ED) Additional Instructions: Keep wound clean and dry Suture removal in 10 to 12 days Return for spreading redness, fever, worsening pain Keep dry for 24 hours Referrals: Mil Coombs, ROBOTIC MACHINE OPERATOR [Primary Care Provider] - Medical Decision Making 62-year-old female with laceration to right index finger patient tolerated suture placement without incident, bandage applied Suture removal in 10 days Return precautions reviewed, neurovascularly intact Medical Records Medical records reviewed: Yes I reviewed the patient's medical records. Lab Data Lab results reviewed: Yes I reviewed the patient's lab results. HPI General Date/Time Provider Initiated Documentation: 09/07/22 11:13 . HPI Narrative: This 62-year-old female presents with laceration to right second digit just prior to arrival with a knife accidentally while cutting steak. Tetanus up-to-date. Denies strength or sensation change. Related Data Home Medications Medication Instructions Recorded Confirmed inhalational spacing device (Space #1 ea 12/12/17 09/07/22 Chamber Plus) fexofenadine 180 mg tablet 180 mg PO DAILY 10/01/21 09/07/22 tiotropium bromide 2.5 2 puff inhalation DAILY #4 grams 10/01/21 09/07/22 mcg/actuation mist for inhalation (Spiriva Respimat) triamcinolone acetonide 55 mcg 1 spray intranasal QAM #16.9 mL 02/01/22 09/07/22 nasal spray aerosol (Nasacort Allergy) paroxetine HCl 20 mg tablet 20 mg PO DAILY #90 tabs 02/21/22 09/07/22 fluticasone propionate 230 2 puff inhalation BID #8 grams 02/25/22 09/07/22 mcg-salmeterol 21 mcg/actuation HFA inhaler albuterol sulfate 90 mcg/actuation 2 puff inhalation Q6H PRN 04/06/22 09/07/22 aerosol inhaler bronchospasm #17 grams ibuprofen 800 mg tablet 800 mg PO TID #60 tabs 04/18/22 09/07/22 montelukast 10 mg tablet See Rx Instructions .Route 04/20/22 09/07/22 .COMPLEX #90 tabs hydrochlorothiazide 12.5 mg tablet 12.5 mg PO DAILY #90 tabs 05/30/22 09/07/22 dupilumab 300 mg/2 mL subcutaneous 300 mg (2 mL) subcut Q2W #4 mL 06/09/22 09/07/22 pen injector (PlayedixRent My Items) dupilumab 300 mg/2 mL subcutaneous 600 mg (4 mL) subcut ONCE #4 mL 06/09/22 09/07/22 pen injector (PlayedixRent My Items) omeprazole 20 mg capsule,delayed 20 mg PO DAILY #90 caps 08/31/22 09/07/22 release lisdexamfetamine 20 mg capsule 20 mg PO DAILY #30 caps 09/05/22 09/07/22 lisdexamfetamine 20 mg capsule 20 mg PO DAILY 09/07/22 09/07/22 (Vyvanse) Previous Rx's Medication Instructions Recorded inhalational spacing device (Space #1 ea 12/12/17 Chamber Plus) tiotropium bromide 2.5 2 puff inhalation DAILY #4 grams 10/01/21 mcg/actuation mist for inhalation (Spiriva Respimat) triamcinolone acetonide 55 mcg 1 spray intranasal QAM #16.9 mL 02/01/22 nasal spray aerosol (Nasacort Allergy) paroxetine HCl 20 mg tablet 20 mg PO DAILY #90 tabs 02/21/22 fluticasone propionate 230 2 puff inhalation BID #8 grams 02/25/22 mcg-salmeterol 21 mcg/actuation HFA inhaler albuterol sulfate 90 mcg/actuation 2 puff inhalation Q6H PRN 04/06/22 aerosol inhaler bronchospasm #17 grams ibuprofen 800 mg tablet 800 mg PO TID #60 tabs 04/18/22 montelukast 10 mg tablet See Rx Instructions .Route 04/20/22 .COMPLEX #90 tabs hydrochlorothiazide 12.5 mg tablet 12.5 mg PO DAILY #90 tabs 05/30/22 dupilumab 300 mg/2 mL subcutaneous 300 mg (2 mL) subcut Q2W #4 mL 06/09/22 pen injector (Dupixent) dupilumab 300 mg/2 mL subcutaneous 600 mg (4 mL) subcut ONCE #4 mL 06/09/22 pen injector (Dupixent) omeprazole 20 mg capsule,delayed 20 mg PO DAILY #90 caps 08/31/22 release lisdexamfetamine 20 mg capsule 20 mg PO DAILY #30 caps 09/05/22 Allergies Allergy/AdvReac Type Severity Reaction Status Date / Time Penicillins Allergy Intermediate SKIN RASH Verified 08/26/22 14:08 house dust Allergy Verified 08/26/22 14:08 Cats Allergy Uncoded 08/26/22 14:08 General Stated Complaint: Laceration ANASTACIA: 4 PFSH All Active Problems (Updated 09/07/22 @ 12:10 by CURTIS Petersen) Allergic rhinitis (Chronic) Anxiety (Chronic) Chronic obstructive lung disease (Chronic) quit smoking 1996 Previous 2 PPD > 20 years PFTs 2016 support dx Hearing loss (Chronic) B/L; left-sensorineural; 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16; right TM scarred Hypertension (Chronic) Increased BMI (body mass index) (Chronic) Carpal tunnel syndrome (Acute) Encounter for annual physical exam (Acute) Hyperlipidemia (Acute) Elevated fasting glucose (Acute) Mammogram abnormal (Acute) Urinary incontinence (Acute) Impacted cerumen, right ear (Acute) Obesity (BMI 35.0-39.9 without comorbidity) (Chronic) 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 Surgical History mastoidectomy age 16 Open Carpal Tunnel release (~05/2008) right Family History Mother , PANCREATIC CA at age 60. Essential hypertension Acute myocardial infarction Heart disease Hyperlipidemia Pancreatic cancer Father , 74 Essential hypertension Heart disease Hyperlipidemia Lung cancer Asthma Brother Depression Heart disease Hyperlipidemia Asthma COPD (chronic obstructive pulmonary disease) Alcohol use disorder Bladder cancer Maternal Grandfather Essential hypertension Personal history of malignant neoplasm Stroke Paternal Grandfather Heart disease Maternal Grandmother No problems noted. Paternal Grandmother No problems noted. Son Depression Son Asthma Son Depression Daughter No problems noted. 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 Pets and animals: Yes Pets and animals: cat(s) and dog(s) Sexually active: Yes Do you think of yourself as: straight/heterosexual Current gender identity: female What is your relationship status?: How often do you talk on the phone with friends or family?: three or more times per week How often do you get together with friends or relatives?: once per week How often do you attend religious or judaism services?: decline to answer Do you belong to any clubs or organized social groups?: no Panel score (0-1 are the most socially isolated patients): 2 What type of physical activity do you participate in: walking Duration: 15-30 minutes/day Frequency: 3-4 times per week Sophia/Mandaeism: No preference Special sophia needs: No Seatbelt use: always Drive intox or ride w/intox bull driver: No Do you feel safe at home: Yes Do you feel safe in your relationship?: Yes Course Vital Signs Vital signs: Vital Signs Temperature 36.6 C 09/07/22 11:13 Pulse 90 09/07/22 11:13 Respiratory Rate 18 09/07/22 11:13 Blood Pressure 121/91 H 09/07/22 11:13 Pulse Oximetry 99 09/07/22 11:13 Temperature 36.6 C 09/07/22 11:13 Temperature Source Oral 09/07/22 11:13 Pulse 90 09/07/22 11:13 Respiratory Rate 18 09/07/22 11:13 Respiratory Effort Normal, Non-Labored 09/07/22 11:17 Blood Pressure 121/91 H 09/07/22 11:13 Blood Pressure Position Sitting 09/07/22 11:13 Pulse Oximetry 99 09/07/22 11:13 Oxygen Delivery Method Room Air 09/07/22 11:13 Oxygen Flow Rate 0 09/07/22 11:13 Procedures Laceration Laceration 1: Site: hand Side (If applicable): right Size (cm): 1 Description: linear Depth: simple, single layer Local Anesthetic: Lidocaine 1% Amount of anesthesia used (mL): 2 Skin layer closed with: nylon Number of sutures: 1 Technique: other (vertical )
== END 2022-09-07 12:51 | disposition home or self-care (01) ==
PROVIDERS: Emergency Provider Physician Assistant; PCP Nurse Practitioner Family
DX: S61.210A Laceration without foreign body of right index finger without damage to nail, initial encounter (principal); W26.0XXA Contact with knife, initial encounter
CPT/HCPCS: 12001

== ENCOUNTER 2023-01-17 03:51 | Outpatient (CLI) | payer MEDICAID, SELFPAY ==
[2023-01-17] MEDS: Levalbuterol HFA 15 GM INH 4 PUFF IH (11:53)
[2023-01-17] MEDS: Inhaler, Assist Device 1 EACH MC (11:53)
--- NOTE | 2023-01-20 10:30 | W.PFT ---
Date of service: 01/17/23 Time of Service: 10:05 Pulmonary Function Test Result Indications: ACOS Interpretation Spirometry: There is moderate airflow limitation. There is a significant bronchodilator response. Lung Volumes: There is hyperinflation and air trapping. Diffusion Capacity: Normal diffusion Airway Pressure: Increased airways resistance Impression Moderate airflow obstruction with a significant bronchodilator response. There is air trapping with a normal diffusion. Note: When compared to 10/12/21, lung function is relatively stable. Clinical Correlation therefore is recommended.
== END 2023-01-17 03:52 | disposition home or self-care (01) ==
LOC: RT 03:51
PROVIDERS: PCP Nurse Practitioner Family; Visit Provider Student in an Organized Health Care Education/Training Program
DX: J44.9 Chronic obstructive pulmonary disease, unspecified (principal)
CPT/HCPCS: 94060; 94726; 94729

== ENCOUNTER → 2023-06-06 02:12 | Outpatient (CLI) | payer MEDICAID, SELFPAY ==
--- NOTE | 2023-06-06 08:00 | DI.MAMMO_ITS ---
Exam(s) MAMMO SCREENING EXAM: MAMMO SCREENING CLINICAL HISTORY: screening,Z12.39 TECHNIQUE: Bilateral full field digital CC and MLO mammographic images were obtained with 3D tomosyn thesis and utilizing computer aided detection (CAD). COMPARISON: Available for comparison. FINDINGS: Masses/Architectural Distortion: None seen. Microcalcifications: No suspicious pleomorphic-type are seen. Skin Thickening/Nipple Retraction: None. IMPRESSION: 1. No significant interval change with no specific features of malignancy noted. 2. Unless there is more urgent need, screening mammography is recommended, as per [employer] [employer] guidelines. BI-RADS Category 1 - Negative Breast Density - Category B - Scattered areas of fibroglandular density Breast density category C or D implies that the patient has dense breast tissue. Dense breast tissue is very common and is not abnormal but dense breast tissue can make it harder to find cancer on a ma mmogram. Also, dense breast tissue may increase their breast cancer risk. This information about the result of the mammogram report was provided to the patient to raise their awareness. Use this report when you speak with the patient about their risks for breast cancer, which includes their family hist ory. At that time, you may recommend for more screening tests (Ultrasound or MRI) as they might be us eful based on their risk. A negative radiographic report should not delay biopsy if a dominant or clinically suspicious mass is present. Up to ten percent of cancers are not identified on mammography. A negative report may reinforce clinical impression. Adenosis and dense breasts may obscure an underlying neoplasm. False positive reports average 6 to 10%. Patient will receive a letter notifying them of these results.
== END ==
PROVIDERS: PCP Nurse Practitioner Family; Visit Provider Nurse Practitioner Family
DX: Z12.31 Encounter for screening mammogram for malignant neoplasm of breast (principal)
CPT/HCPCS: 77063; 77067

== ENCOUNTER 2024-05-10 14:21 | Outpatient (REF) | payer MEDICAID, SELFPAY ==
--- NOTE | 2024-05-10 13:30 | PAPFT_PTH ---
PATIENT: Kathi Rodas LOC: [facility]#:[id number] AGE/SX: 64/F ROOM: RE05/10/[address]: Mil Tabares DNP : 1960 BED: DIS: 05/10/2024 SPEC #: [id number] RECD: 05/13/24 13:41 STATUS: STEVEN REQ #: [id number] KERI: 05/10/24 13:[address]: Mil Coombs DEPT: [facility] Cytology RECD BY: So Bradley Tissues: 1 - CX/ENDOCX FOR PAP SMEARS Procedures: PAP THIN PREP/UVM Screening HPV DNA PROBE Comments: [id number] (HPV 16 & 18/45)
[2024-05-10 21:28] LABS: Hemoglobin A1C 6.4 % (<5.7)
[2024-05-10 21:32] LABS: ALT 34 U/L (14-59); AST 25 U/L (15-37); Albumin 3.8 g/dL (3.4-5.0); Alkaline Phosphatase 98 U/L (46-116); Anion Gap 9.1 mmol/L (3-11); BUN 6 mg/dL (7-18); Bilirubin, Total 0.22 mg/dL (0.2-1.0); CO2 27.9 mmol/L (21.0-32.0); CREATININE 0.9 mg/dL (0.55-1.02); Calcium 9.1 mg/dL (8.5-10.1); Calculated LDL 127 mg/dL (<100); Chloride 105 mmol/L (98-107); Cholesterol 207 mg/dL (<200); Estimated GFR 71.83 (mL/min/1.73m2); Glucose 129 mg/dL (74-106); HDL Cholesterol 57 mg/dL (40-60); Potassium 3.6 mmol/L (3.5-5.1); Sodium 142 mmol/L (136-145); Total Protein 6.9 g/dL (6.4-8.2); Triglyceride 117 mg/dL (<150)
[2024-05-12 09:23] LABS: HIV-1/2 Ag & Ab Screen Negative (Negative)
[2024-05-13 10:19] LABS: Hepatitis C Ab w Rflx HCV PCR Negative (Negative)
[2024-05-13 10:34] LABS: HBs Antibody, Quant <3.1 mIU/mL (See Note); Hep B Surface Ab Negative (See Note); Hepatitis B Core Antibody Negative (Negative); Hepatitis B Surface Antigen Negative (Negative)
== END 2024-05-10 14:22 | disposition home or self-care (01) ==
LOC: NCHCN 14:21
PROVIDERS: PCP Nurse Practitioner Family; Visit Provider Nurse Practitioner Family
DX: R73.03 Prediabetes (principal); Z11.4 Encounter for screening for human immunodeficiency virus [HIV]; Z11.59 Encounter for screening for other viral diseases; Z12.4 Encounter for screening for malignant neoplasm of cervix
CPT/HCPCS: 80053; 80061; 86704; 86706; 86803; 87340; 87389; 88142; 83036; 87624

== ENCOUNTER 2024-05-27 03:02 | Outpatient (CLI) | payer MEDICAID, SELFPAY ==
--- NOTE | 2024-05-27 14:30 | DI.US_ITS ---
APPROVED REPORT EXAM: Comprehensive 2D, Doppler, and color-flow Echocardiogram Patient Location: [facility] Sports Coordinator: Madan Paredes RDCS (AE) Indications: Family history of aortic valve disease, ? calcified aortic valve Other Information Study Quality: Adequate Conclusion Normal left ventricular wall thickness and chamber size. Ejection fraction is 60 to 65%. Wall motio n is normal Normal right ventricular size and function Both atria are normal in size There is no structural or hemodynamically significant valvular disease Estimated right ventricular systolic pressure is 29 mmHg Wall motion Left Ventricle The left ventricle is normal size. Left ventricular systolic function is normal. The left ventricular ejection fraction is within the normal range. There is normal left ventricular wall thickness. There is normal LV segmental wall motion. The left ventricular diastolic function is normal. There is no v entricular septal defect visualized. LVEF is 60-65%. Right Ventricle The right ventricle is normal size. The right ventricular systolic function is normal. Atria The left atrium size is normal. The right atrium size is normal. The interatrial septum is intact wit h no evidence for an atrial septal defect. Aortic Valve The aortic valve is normal in structure. Aortic valve is trileaflet. There is no aortic valvular sten osis. No aortic regurgitation is present. Mitral Valve The mitral valve is normal in structure. No evidence of mitral valve stenosis. There is no mitral kristi ve regurgitation noted. Tricuspid Valve The tricuspid valve is normal in structure. There is no tricuspid valve stenosis. Trace tricuspid reg urgitation. The RVSP is 28.9 mmHg. Pulmonic Valve The pulmonary valve is normal in structure. There is no pulmonic valvular stenosis. There is no pulmo savannah valvular regurgitation. Great Vessels The aortic root is normal in size. The ascending aorta is normal in size. Aortic arch is normal in ca liber. IVC is normal in size and collapses >50% with inspiration. Pericardium There is no pericardial effusion. 2D Dimensions IVSD d PLAX 0.87 cm F: 0.6-1.0 Ao Root d 3.04 cm F: 2.7 - 3.3 LVPW d PLAX 0.87 cm F: 0.6 - 1.0 Ao Asc Diam d 3.07 cm F: 2.3 - 3.1 LVID d PLAX 4.94 cm F: 3.8 - 5.2 LVDs 3.27 cm F: 2.2 - 3.5 LV EF Teichholz 62.4 % FS 33.80 % LV EDV (Teich) 115.2 mL LV ESV (Teich) 43.3 mL Stroke Vol Index (Teich) 42.82 M-Mode TAPSE 2.17 cm (M/F) >1.7 Auto EF LV EDV A4C 129.7 mL LV EDV A2C LV EDV BP LV ESV A4C 50.3 mL LV ESV A2C LV ESV BP LVEF(%) A4C 61.2 % LVEF(%) A2C LVEF(%) BP LV SV A4C 79.4 ml LV SV A2C LV SV BP LV CO A4C 7.4 L/min LV CO A2C LV CO BP HR A4C 93.03 BPM HR A2C LV EDV Index (BP) LV Volumes - Method of Disks (Duff's) Single Plane 2D LV Volumes Biplane 2D LV Volumes LV EDV A4C 132.2 mL LV EDV BP 119.51 mL F: 46 - 106 LV ESV A4C 58.8 mL LV ESV BP 48.7 mL LVEF(%) A4C 55.5 % LVEF(%) BP 59.26 % F: 54 - 74 LV EDV A2C 108.0 mL LV EDV BP Index 71.13 mL/m2 F: 29 - 61 LV ESV A2C 38.9 mL SV BP LVEF(%) A2C 64.0 % SV Index LA Volume LA Length A4C 3.1 cm LA Length A2C LA Area A4C s 6.54 cm2 LA Area A2C s LA Vol A4C A-L 11.67 mL LA Vol A2C A-L LA Vol Biplane A-L LA Vol A4C MOD 9.9 mL LA Vol A2C MOD LA Vol BP MOD RA Volume RA Area A4C 4.5 cm2 RA ESV A4C (A-L) 6.9mL RA Vol/BSA A4C A-L RA Length A4C 2.5 cm RA ESV A4C (MOD) 6.8mL LV Diastology MV E Vmax 1.00 (0.4-1.3 m/s) Aortic Valve AoV Vmax 1.47 m/s LVOT Vmax 1.28 m/s AoV Peak Grad 8.6 mmHg LVOT Peak Grad 6.5 mmHg AoV Area (Vmax) 2.77 cm2 LVOT VTI 0.241 m AoV VTI 0.316 m LVOT Mean Grad 3.6 mmHg AoV Mean [place]. 1.08 m/s LVOT SV 76.83 mL AoV Mean Grad 5.2 mmHg LVOT Diam s 2.00 cm AoV Area (VTI) 2.43 cm2 AV Regurg Peak Gr. 8.61 mmHg Velocity Ratio 0.87 Mitral Valve MV Vmax TIPS 1.04 m/s MV Mean Grad 2.4 (<2mmHg) MV VTI 0.222 m Pulmonary Valve PV Vmax 0.86 (0.5-1.5 m/s) RVOT Vmax 0.73 m/s PV Peak Grad 3.0 mmHg RVOT Peak Gr. 2.2 mmHg PV Mean [place] 0.59 m/s RVOT VTI 0.135 m PV Mean Grad 1.6 mmHg RVOT Mean Gr. 1.1 mmHg Tricuspid Valve RA Pressure 3.00 mmHg TR Vmax 2.55 m/s TR Peak Grad 25.9 mmHg RVSP (TR) 28.9 mmHg
== END 2024-05-27 03:22 ==
LOC: DI 03:03
PROVIDERS: PCP Nurse Practitioner Family; Visit Provider Internal Medicine Cardiovascular Disease
DX: Z82.49 Family history of ischemic heart disease and other diseases of the circulatory system (principal); Z13.6 Encounter for screening for cardiovascular disorders
CPT/HCPCS: 93306

== ENCOUNTER 2024-07-01 10:28 | Day surgery (SDC) | payer MEDICAID, SELFPAY ==
--- NOTE | 2024-06-30 18:00 | W.PM.DSUDISC ---
Date of service: 07/01/24 Discharge Plan Disposition Patient Disposition: Home Condition: Good Discharge Details Reason For Visit: colonoscopy Attending Provider: Jose Antonio Marquez Primary Care Provider: Mil Coombs Home Meds and New Rx's Prescriptions: Continued fexofenadine 180 mg tablet 180 mg PO DAILY triamcinolone acetonide [Nasacort Allergy] 55 mcg aerosol,spray 1 spray intranasal QAM Qty: 16.9 12RF Rx Instructions: administer into each nostril ibuprofen 800 mg tablet 800 mg PO TID PRN (Reason: pain) Qty: 60 1RF albuterol sulfate 90 mcg/actuation HFA aerosol inhaler 2 puff IH Q6H PRN (Reason: bronchospasm) Qty: 17 6RF ipratropium-albuterol 0.5 mg-3 mg(2.5 mg base)/3 mL solution for nebulization 3 ml inhalation QID PRN (Reason: wheezing) Qty: 180 6RF (DME) Space Chamber Plus spacer 1 ea Miscellaneous ONCE Qty: 1 0RF Rx Instructions: Replacement spacer Dupixent Pen 300 mg/2 mL pen injector 300 mg subcut Q2W Qty: 4 12RF fluticasone propion-salmeterol 230-21 mcg/actuation HFA aerosol inhaler 2 puff IH BID Qty: 8 6RF omeprazole 20 mg capsule,delayed release(DR/EC) 20 mg PO DAILY Qty: 90 4RF Spiriva Respimat 2.5 mcg/actuation mist See Rx Instructions .ROUTE .COMPLEX Qty: 4 12RF Dose Instruction: INHALE 2 PUFFS BY MOUTH DAILY Rx Instructions: INHALE 2 PUFFS BY MOUTH DAILY hydrochlorothiazide 12.5 mg tablet 12.5 mg PO DAILY Qty: 90 3RF paroxetine HCl 40 mg tablet 40 mg PO DAILY Qty: 90 3RF montelukast 10 mg tablet See Rx Instructions .ROUTE .COMPLEX Qty: 90 3RF Dose Instruction: TAKE 1 TABLET BY MOUTH EVERY DAY AT BEDTIME Rx Instructions: TAKE 1 TABLET BY MOUTH EVERY DAY AT BEDTIME Discontinued bisacodyl [Dulcolax (bisacodyl)] 5 mg tablet,delayed release (DR/EC) 5 mg PO ONCE Qty: 4 0RF Rx Instructions: Take per colonoscopy instructions provided by ordering providers office polyethylene glycol 3350 17 gram/dose powder 17 g PO ONCE Qty: 238 0RF Rx Instructions: Take per colonoscopy instructions provided by ordering providers office Discharge Instructions Instructions: Colon polyps, Diverticulosis Additional Instructions: Kathi, was a pleasure meeting you today, and hope you feel well after the procedure. Things went very smoothly. Your prep was excellent, negative everything fine. I did find, and removed, 2 polyps today. Both of these were extremely small, and certainly nothing to worry about. Polyps do come in different types, so this will be sent off to the pathologist for the review. Once my office knows the nature of the polyps, then we will be in touch with recommendations for future colonoscopies. Incidentally, you also have a little bit of diverticulosis. Diverticula are little weak spots in the muscular layer of the colon wall. They typically accumulate as we get older. The pockets are known as diverticula, and the condition of having them is referred to as diverticulosis. Some patients experience pain, and flareups of this that are known as diverticulitis. Hopefully, years will never bother you. I will attach a little bit of information here about typical approaches to diverticular management, as well as colorectal polyps. If you need anything or have any questions at all, please do not hesitate to call, otherwise we will be in touch once the polyp results are available. 1. If tolerated, consume a soft, low fiber diet for 1-2 days. 2[address] Do not drive, drink alcohol, operate machinery, make critical decisions, or do activities that require coordination or balance for 24 hours. 3. Because air was put into your colon during the procedure, expelling air from your rectum (passing gas or farting) is normal. 4. You may not have a bowel movement for 1-3 days because of the colonoscopy prep. This is normal. 5. Go directly to the emergency room if you notice any of the following: Develop chills (warm to touch), or if you have a thermometer and your temperature is above 101 Difficulty breathing or difficultly swallowing Persistent vomiting Severe abdominal pain, other than gas cramps Severe chest pain Black, tarry stools Any bleeding ? exceeding one tablespoon 6. Call your physician if the site where your intravenous was started becomes red, swollen, painful, and warm to touch. 7. Your physician has reviewed your pre-procedure medications. Please continue to take those medications as previously ordered. You will be given specific information/education regarding any changes to your medications before leaving. Stand Alone Forms: Anesthesia Discharge Inst., Gena Cota (DSU) Activity:: Activity as Tolerated Diet:: As Tolerated Discharge Orders Discharge Orders: Discharge Order (Routine); Ordered 06/30/24 Ordered By: Jose Antonio Marquez DS: Diagnosis Discharge Diagnosis (1) Encounter for screening colonoscopy: Status: Acute Asessment and Plan: Follow-up on polypectomy results
--- NOTE | 2024-06-30 18:02 | W.COLOREPORT ---
Date of service: 07/01/24 Time of Service: 12:59 Colonoscopy Report Date of procedure: 07/01/24 Pre-op diagnosis general: screening colonoscopy Post-op diagnosis procedure note: other (Colon polyps, diverticulosis) Procedure: colonoscopy Surgeon: Jose Antonio Marquez Anesthesia Type: General:No Airway Estimated blood loss (mL): 5 Pathology: other (Less than 0.25 cm pedunculated rectal polyp, 0.25 cm flat polyp at 55 cm) Complications: None Disposition: same day Indications: Kathi is a 64 year old woman who needs a screening colonoscopy Prep: Miralax/Dulcolax Procedure Start Time: 12:34 Procedure End Time: 12:52 Retraction Time: 10 Findings: Sigmoid diverticulosis, less than 0.25 cm pedunculated rectal polyp, 0.25 cm flat polyp at 55 cm Procedure Description: After the induction of anesthesia, and with the patient in left lateral decubitus position, I began by performing an external anorectal exam.? Perineum and skin were normal, as was the anal verge.? There was no evidence of external hemorrhoids.? Next, I performed a digital rectal exam.? I did not appreciate any abnormal findings.? Next, I advanced a colonoscope into the rectal vault.? I performed retroflexion.? In the bottom portion of the rectal vault was slightly pedunculated polyp. This was less than 0.25 cm in its greatest dimensions. This was removed with cold forceps polypectomy with minimal bleeding. Using irrigation, I then advanced the colonoscope beyond the rectal folds and into the sigmoid colon before advancing towards the cecum.? The quality of the prep was excellent.? The scope was noted to be in the cecum by identification of the ileocecal valve and appendiceal orifice.? I then began withdrawing the colonoscope using repeated irrigation as necessary for full evaluation of the colonic mucosa. Around 55 cm from the anal verge I identified a 0.25 cm polyp. ?It appeared flat in character. ?I was able to remove this with a cold forcep polypectomy. ?I examined the site, and there was minimal bleeding. ?Once this was completed, I continued to withdraw the scope and examine the remainder of the colonic mucosa.? There were small and narrow mouth diverticula within the sigmoid segment. Once the scope was withdrawn to the level of the rectum, great care was taken to examine portions of the rectal folds.? Finally, the scope was withdrawn and the patient was brought to the same-day surgery recovery unit as the anesthetic wore off. ?The findings and instructions were shared with the patient prior to discharge. [place] Bowel Prep [place] Bowel Prep Right Colon: 3 Left Colon: 3 Transverse Colon: 3 Total Score: 9
[2024-07-01 11:20] VITALS: BP 136/83; PULSE 104; RESP 22; TEMP 36.7; O2SAT 94
--- NOTE | 2024-07-01 12:03 | W.ANESPRE ---
General Info Date of Service Date Performed: 07/01/24 Height: 4 ft 11 in Weight: 73.3 kg Body Mass Index (BMI): 32.6 Surgical Procedure: Operation Date: 07/01/24 11:50 Proposed Procedure Side Surgeon keke Marquez MD Meds Allergies and Home Medications Allergies Allergy/AdvReac Type Severity Reaction Status Date / Time Penicillins Allergy Intermediate SKIN RASH Verified 07/01/24 11:41 house dust Allergy Itching Verified 07/01/24 11:41 Cats Allergy Itching Uncoded 07/01/24 11:41 dry or wet leaves AdvReac Unknown Uncoded 07/01/24 11:41 Home Medication ?Medication ?Instructions ?Recorded inhalational spacing device (Space #1 ea 12/12/17 Chamber Plus) fexofenadine 180 mg tablet 180 mg PO DAILY 10/01/21 triamcinolone acetonide 55 mcg 1 spray intranasal QAM #16.9 mL 02/01/22 nasal spray aerosol (Nasacort Allergy) dupilumab 300 mg/2 mL subcutaneous 300 mg (2 mL) subcut Q2W #4 mL 07/03/23 pen injector (Dupixent) fluticasone propionate 230 2 puff inhalation BID #8 grams 12/05/23 mcg-salmeterol 21 mcg/actuation HFA inhaler omeprazole 20 mg capsule,delayed 20 mg PO DAILY #90 caps 12/21/23 release tiotropium bromide 2.5 See Rx Instructions .Route 01/05/24 mcg/actuation mist for inhalation .COMPLEX #4 grams (Spiriva Respimat) hydrochlorothiazide 12.5 mg tablet 12.5 mg PO DAILY #90 tabs 02/27/24 paroxetine HCl 40 mg tablet 40 mg PO DAILY #90 tabs 02/27/24 albuterol sulfate 90 mcg/actuation 2 puff inhalation Q6H PRN 03/05/24 aerosol inhaler bronchospasm #17 grams ipratropium 0.5 mg-albuterol 3 mg 3 ml inhalation QID PRN wheezing 03/05/24 (2.5 mg base)/3 mL nebulization #180 mL soln montelukast 10 mg tablet See Rx Instructions .Route 03/11/24 .COMPLEX #90 tabs ibuprofen 800 mg tablet 800 mg PO TID PRN pain #60 tabs 05/10/24 Current Visit Medications: Current Medications Generic Name Dose Route Start Last Admin Trade Name Freq PRN Reason Stop Dose Admin Ringer's Solution 1,000 mls @ 80 mls/hr 07/01/24 06:00 IV 07/01/24 23:59 INFUSION GRIS IV Miscellaneous Supplies 1 each 07/01/24 06:00 Iv Access IV 07/01/24 23:59 DIRECTED GRIS Ondansetron HCl 4 mg 06/30/24 18:04 Ondansetron 4 Mg/2 Ml Vial IVP 07/30/24 18:03 Q4H PRN PRN Nausea / Vomiting Sodium Chloride 0 ml 07/01/24 06:00 Normal Saline Flush 10 Ml Syr IV 07/01/24 23:59 PRN PRN Sodium Chloride 0 ml 07/01/24 06:00 Normal Saline 10 Ml Vial IJ 07/01/24 23:59 DIRECTED PRN Sterile Water 0 ml 07/01/24 06:00 Water,Injection,Sterile 10 Ml Vial IJ 07/01/24 23:59 DIRECTED PRN PFSH Active Problems Active Problems: Problem Status Onset Code Encounter for screening colonoscopy Acute Z12.11 Family history of aortic valve disorder Acute Z82.49 Otalgia, right ear Acute H92.01 Prediabetes Acute R73.03 ADHD Acute F90.9 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 Obesity (BMI 35.0-39.9 without comorbidity) Chronic E66.9 Impacted cerumen, right ear Acute H61.21 Urinary incontinence Acute R32 Mammogram abnormal Acute R92.8 SARS-CoV-2 positive Resolved ~02/25/ U07.1 Hyperlipidemia Acute E78.5 Encounter for annual physical exam Acute Z00.00 Carpal tunnel syndrome Acute G56.00 Increased BMI (body mass index) Chronic R63.8 Hypertension Chronic I10 Hearing loss Chronic H91.90 Chronic obstructive lung disease Chronic J44.9 Anxiety Chronic F41.9 Allergic rhinitis Chronic J30.9 Medical History Medical History Upper respiratory disease Chronic rhinitis Mixed hearing loss, bilateral History of excessive cerumen Immunization due Elevated fasting glucose Smoker Quit ? Asthma Knee pain Menopausal symptom Surgical History Surgical History mastoidectomy age 16 Open Carpal Tunnel release (~05/2008) right Tobacco Smoking/Tobacco Use Status: Former Tobacco Use Passive smoking exposure: No Second hand exposure: Yes Alcohol Alcohol Intake: current Alcohol intake frequency: holidays/special occasions only Substance Use Substance use: Never Substance use type: does not use Counseling provided: none Vital Signs and Lab Results Vital Signs Most Recent Vital Signs in EMR: Most Recent Vital Signs Temp Pulse Resp BP Pulse Ox 36.7 C 104 H 22 136/83 94 07/01/24 11:20 07/01/24 11:20 07/01/24 11:20 07/01/24 11:20 07/01/24 11:20 Lab Results Blood Type / Crossmatch: No Data to Display Complete Blood Count: No Data to Display Complete Metabolic Panel: No Data to Display Liver Function Panel: No Data to Display Coagulation Panel: No Data to Display Cardiac Panel: No Data to Display Arterial Blood Gas: No Data to Display Venous Blood Gas: No Data to Display Pancreas Panel: No Data to Display Thyroid Panel: No Data to Display Infectious Disease: No Data to Display Blood Cultures: No Data to Display Toxicology Panel: No Data to Display Imaging and Studies Imaging and Studies Study information below may be from another EMR and interpreted by another provider. Please see original notes in EMR for more complete details. Echocardiogram Summary: Conclusion Normal left ventricular wall thickness and chamber size. Ejection fraction is 60 to 65%. Wall motion is normal Normal right ventricular size and function Both atria are normal in size There is no structural or hemodynamically significant valvular disease Estimated right ventricular systolic pressure is 29 mmHg Carotid Artery Summary:: CAROTID ULTRASOUND: A mild amount of calcific plaque is seen in the left proximal external carotid artery. There is mild intimal thickening in the distal common carotid arteries. No significant internal carotid artery stenosis is visualized. The velocity measurements are in the normal range. IMPRESSION: Minimal plaque. No significant internal carotid artery stenosis. Pulmonary Function Summary: Impression Moderate airflow obstruction with a significant bronchodilator response. There is air trapping with a normal diffusion. Note: When compared to 10/12/21, lung function is relatively stable. Clinical Correlation therefore is recommended. Anesthesia Assessment and Plan Anesthesia History Personal History: No History of Anesthesia Complications Family History: No Family History of Anesthesia Complications Exercise Tolerance Exercise Tolerance: Metabolic Equivalents>4 Pertinent Negatives Pertinent Negatives: No Symptoms of GERD Cardiac & Pulmonary Exam Cardiac Exam: Normal S1/S2 Heart Sounds Pulmonary Exam: Clear Bilateral Breath Sounds Implantable Cardiac Device Does patient have a Pacemaker or an ICD?: No Airway Exam Known Difficult Airway: No Mallampati Class: 2 Mouth Opening: Normal (> 3cm) Thyromental Distance: Greater than 3 cm Neck Range of Motion: Full ROM Neck Circumference: Normal Teeth Condition: Removable Dentures/Plates Upper ASA Classification ASA Score: ASA 2 Emergency Case?: No NPO Status NPO Status: NPO Clears >2 hours, Solids >8 hours Anesthesia Plan Resuscitation Status: Full Code Anesthesia Technique: General Anesthesia Airway Planned: Natural Airway Monitors Used: Standard Monitors
[2024-07-01 12:10] VITALS: BMI 32.6
[2024-07-01] MEDS: Lactated Ringers 1,000 ML 80 ML IV (12:15)
--- NOTE | 2024-07-01 12:36 | BOWEL_PTH ---
PATIENT: Kathi Rodas LOC: [facility] U#:[id number] AGE/SX: 64/F ROOM: RE07/01/[address]: Jose Antonio Marquez MD : [id number] BED: DIS: 07/01/2024 SPEC #: [id number] RECD: 07/01/24 16:43 STATUS: STEVEN REQ #: [id number] KERI: 07/01/24 12:[address]: Jose Antonio Marquez DEPT: Surgical Specimen RECD BY: So Bradley ENTERED: 07/01/24 16:44 SP TYPE: Bowel OTHR DR: Mil Tabares DNP Tissues: 1 - BIOPSY BOWEL 2 - BIOPSY BOWEL Procedures: GROSS AND MICRO LEVEL 4 Comments: [id number]
[2024-07-01 12:57] VITALS: BP 123/82; PULSE 92; RESP 18; TEMP 36.2; O2SAT 94
[2024-07-01 13:27] VITALS: BP 113/84; PULSE 87; RESP 18; TEMP 36.3; O2SAT 95
--- NOTE | 2024-07-01 13:56 | W.ANESPOSTOP ---
Postoperative Evaluation Date, Time and Location Date Performed: 07/01/24 Time Performed: 13:35 Patient Location: Day Surgery Unit Vital Signs Most Recent Imported Vital Signs: Most Recent Vital Signs Temp Pulse Resp BP Pulse Ox 36.3 C L 87 18 113/84 95 07/01/24 13:27 07/01/24 13:27 07/01/24 13:27 07/01/24 13:27 07/01/24 13:27 Pain Score Most Recent Pain Score: Most Recent Pain Score Pain Level 0 07/01/24 13:27 Assessment Mental Status: Awake (Alert & Oriented to Patient Baseline) Airway and Respiratory Function: Patent airway with normal (patient baseline) respiratory exam Cardiovascular Function: Hemodynamically Stable Hydration Status: Adequately Hydrated Nausea & Vomiting: No Nausea or Vomiting Pain: Pt. Denies Any Pain Peripheral Nerve Block: Patient did not receive a nerve block
== END 2024-07-01 13:42 | disposition home or self-care (01) ==
LOC: SUR 10:28
PROVIDERS: PCP Nurse Practitioner Family; Visit Provider Surgery
PROC: 0DJD8ZZ Inspection of Lower Intestinal Tract, Via Natural or Artificial Opening Endoscopic (ICD-10-PCS; CPT 45378; principal; 2024-07-01 11:45)
DX: Z12.11 Encounter for screening for malignant neoplasm of colon (principal); K57.30 Diverticulosis of large intestine without perforation or abscess without bleeding; K63.5 Polyp of colon; K62.1 Rectal polyp
CPT/HCPCS: 45380; 88305; J2704